=== PATIENT | female | born 1960 | race Caucasian/White ===

== ENCOUNTER 2019-06-06 12:56 | Observation (INO) | payer SELFPAY ==
[2019-06-06 15:22] LABS: Urine Blood 2+ (NEG); Urine Glucose NEGATIVE (NEG); Urine Protein NEGATIVE (NEG); Urine pH 5.5 (5.0-7.0)
[2019-06-06] MEDS ORDERED: KETOROLAC 30 MG/ML INJ ONE (15:38)
[2019-06-06 16:03] LABS: Absolute Lymphocytes (CBC) 2.3 K/uL (0.7-4.9); Basophils % 0.4 % (0-1.3); Lymphocytes % 20.8 % (15.3-44.8); MPV 8.4 fL (7.6-11.3); RBC Red Blood Cell Count 4.48 M/uL (3.86-4.86)
[2019-06-06 16:22] LABS: ALT/SGPT 16 U/L (12-78); AST/SGOT 12 U/L (15-37); Albumin 3.3 g/dL (3.4-5.0); Alkaline Phosphatase 101 U/L (45-117); BUN Blood Urea Nitrogen 15 mg/dL (7-18); Bicarbonate 27 mmol/L (21-32); Bilirubin Direct < 0.1 mg/dL (0-0.2); Bilirubin Total 0.2 mg/dL (0.2-1.0); Glucose Level 91 mg/dL (74-106); Lipase 91 U/L (73-393); Potassium 3.9 mmol/L (3.5-5.1); Protein, Total 7.4 g/dL (6.4-8.2); Sodium Level 142 mmol/L (136-145)
--- NOTE | 2019-06-06 16:35 | RAD REPORT ---
EXAM DESCRIPTION: CT - Stone Protocol - 06/06/2019 3:50 pm CLINICAL HISTORY: Abdominal pain. Dysuria COMPARISON: None. TECHNIQUE: Computed axial tomography of the abdomen pelvis was obtained without oral or IV contrast. Lack of IV and oral contrast limits evaluation of solid organs, bowel, and vessels. Coronal reformat panfilo images were obtained and reviewed. All CT scans are performed using dose optimization technique as appropriate and may include automated exposure control or mA/KV adjustment according to patient size. FINDINGS: A 16 millimeter right lower lobe opacity A renal calculus is not seen. Moderate left hydronephrosis. 8 millimeter calculus distal left ureter Hounsfield unit 1133. A bladder calculus is not present. 39 millimeter lobulated mass extends off of the lower pole of the right kidney. Hounsfield unit 24 The liver, pancreas and adrenals appear grossly normal. Splenic granulomata. Small gastric diverticu lum There is no evidence of diverticulitis. The appendix appears normal A hysterectomy has been performed. 23 millimeter cystic structure anterior left pelvis likely benign ovarian/paraovarian cyst. IMPRESSION: 8 millimeter calculus distal left ureter resulting moderate left hydronephrosis 39 millimeter lobulated mass extending off the lower pole of the right kidney does not represent a si mple cyst. It may represent a benign complex cyst or neoplasm. Ultrasound recommended 23 millimeter cystic structure anterior left pelvis likely benign ovarian/paraovarian cyst. Follow-up ultrasound in 6 months recommended to assess stability 16 millimeter right lower lobe opacity may represent an area of inflammation, atelectasis, infection or neoplasm. Follow-up CT scan in 3 months recommended for re-evaluation
--- NOTE | 2019-06-06 16:45 | ER ---
Nurse's Notes [facility] Name: Selena Fox Age: 59 yrs Sex: Female : 1960 Arrival Date: 06/06/2019 Time: 12:59 Bed 8 Private MD: Diagnosis: Hydronephrosis with renal and ureteral calculous obstruction Presentation: 06/06 13:06 Presenting complaint: Difficulty urinating and pain in groin x [address] demetrius Chapin for 8mm kidney stone. Transition of care: patient was not received from another setting of care. Onset of symptoms was May 31, 2019. Risk Assessment: Do you want to hurt yourself or someone else? Patient reports no desire to harm self or others. Initial Sepsis Screen: Does the patient meet any 2 criteria? No. Patient's initial sepsis screen is negative. Does the patient have a suspected source of infection? No. Patient's initial sepsis screen is negative. Care prior to arrival: None. 13:06 Method Of Arrival: Ambulatory 13:06 Acuity: TRISTA 3 hb Triage Assessment: 14:32 General: Appears in no apparent distress. obese, well groomed, Behavior is calm, tw2 cooperative, appropriate for age. Historical: - Allergies: 13:08 No Known Allergies; hb - PSHx: 13:08 Hysterectomy; Tubal ligation; hb - Immunization history:: Adult Immunizations up to date. - Social history:: Smoking status: Patient uses tobacco products, smokes one pack cigarettes per day. - Ebola Screening: : No symptoms or risks identified at this time. Screenin:22 Abuse screen: Denies threats or abuse. Nutritional screening: No deficits noted. tw2 Tuberculosis screening: No symptoms or risk factors identified. Fall Risk None identified. Assessment: 14:30 Pain: Complains of pain in left low back and right low back Pain radiates to pelvis. tw2 Neuro: Level of Consciousness is awake, alert, obeys commands, Oriented to person, place, time, situation. Cardiovascular: Heart tones S1 S2 Patient's skin is warm and dry. Respiratory: Airway is patent Respiratory effort is even, unlabored, Respiratory pattern is regular, symmetrical, Breath sounds are clear bilaterally. GI: Abdomen is round non-distended, obese, Bowel sounds present X 4 quads. Abd is soft and non tender X 4 quads. Reports nausea, vomiting. : Reports urgency, urinary frequency. EENT: No signs and/or symptoms were reported regarding the EENT system. Derm: No signs and/or symptoms reported regarding the dermatologic system. Musculoskeletal: Range of motion: intact in all extremities. 15:51 Reassessment: pt is in CT at this time, unavailable for vs. tw2 15:56 Reassessment: Patient appears in no apparent distress at this time. No changes from tw2 previously documented assessment. Patient and/or family updated on plan of care and expected duration. Pain level reassessed. Patient is alert, oriented x 3, equal unlabored respirations, skin warm/dry/pink. pt back from CT at this time, requesting to go smoke, pt educated as to the smoke free campus. 17:00 Reassessment: Patient appears in no apparent distress at this time. No changes from tw2 previously documented assessment. Patient and/or family updated on plan of care and expected duration. Pain level reassessed. Patient is alert, oriented x 3, equal unlabored respirations, skin warm/dry/pink. 18:31 Reassessment: Patient appears in no apparent distress at this time. No changes from tw2 previously documented assessment. Patient and/or family updated on plan of care and expected duration. Pain level reassessed. Patient is alert, oriented x 3, equal unlabored respirations, skin warm/dry/pink. 19:55 General: Appears in no apparent distress. Behavior is calm, cooperative, appropriate ea for age. Pain: Denies pain. Neuro: Level of Consciousness is awake, alert, obeys commands, Oriented to person, place, time, situation. Cardiovascular: Respiratory: Airway is patent Respiratory effort is even, unlabored, Respiratory pattern is regular, symmetrical. Derm: No signs and/or symptoms reported regarding the dermatologic system. Derm: Skin is pink, warm \T\ dry. Musculoskeletal: Circulation, motion, and sensation intact. 20:50 Reassessment: Patient and/or family updated on plan of care and expected duration. Pain ea level reassessed. Patient is alert, oriented x 3, equal unlabored respirations, skin warm/dry/pink. Awaiting on room assignment. 21:00 Reassessment: Report called to Brittney FOX on fourth. ea 21:20 Reassessment: Patient and/or family updated on plan of care and expected duration. Pain ea level reassessed. Patient is alert, oriented x 3, equal unlabored respirations, skin warm/dry/pink. Pt admitted to fourth floor, pt left ED via wheelchair per tech, pt tolerating well. No s/s of pain or discomfort noted at this time. Vital Signs: 13:08 BP 144 / 81; Pulse 96; Resp 16; Temp 98.8; Pulse Ox 97% on R/A; Weight 88.45 kg; Height hb 5 ft. 5 in. (165.10 cm); Pain 10/10; 14:30 BP 117 / 65; Pulse 97; Resp 17; Temp 98.0(O); Pulse Ox 95% on R/A; Pain 10/10; tw2 15:56 BP 130 / 94; Pulse 97; Resp 17; Pulse Ox 95% on R/A; tw2 17:00 BP 120 / 74; Pulse 83; Resp 17; Pulse Ox 95% on R/A; tw2 18:31 BP 128 / 87; Pulse 102; Resp 17; Pulse Ox 95% on R/A; tw2 20:00 BP 120 / 80; Pulse 90; Resp 18; Pulse Ox 98% on R/A; ea 21:00 BP 118 / 70; Pulse 89; Resp 18; Pulse Ox 100% on R/A; ea 13:08 Body Mass Index 32.45 (88.45 kg, 165.10 cm) hb ED Course: 12:59 Patient arrived in ED. mr 13:08 Triage completed. hb 13:08 Arm band placed on left wrist. hb 14:21 Gretel Meyers RN is Primary Nurse. tw2 14:22 Bed in low position. Call light in reach. Pulse ox on. NIBP on. tw2 14:39 Richard Alfredo PA is PHCP. jr8 14:39 Denis Gilbert MD is Attending Physician. jr8 15:45 Inserted saline lock: 20 gauge in right antecubital area, using aseptic technique. tw2 Blood collected. 15:50 CT Stone Protocol In Process Unspecified. EDMS 16:43 Lawrence Chapin MD is Hospitalizing Provider. jr8 16:43 Tom Peng MD is Hospitalizing Provider. jr8 18:59 Report given to DOMINIQUE Macias. tw2 21:20 Patient admitted, IV remains in place. ea 21:29 No provider procedures requiring assistance completed. ea Administered Medications: 15:45 Drug: TORadol - Ketorolac 15 mg Route: IVP; Site: right antecubital; tw2 16:00 Follow up: Response: No adverse reaction; Pain is decreased tw2 Outcome: 16:44 Decision to Hospitalize by Provider. olinda 21:20 Admitted to Med/surg accompanied by tech, room 425, with chart, Report called to Brittney xavier RN 21:20 Condition: stable 21:20 Instructed on the need for admit. 21:25 Patient left the ED. morenita Signatures: Dispatcher [employer] EDMS BobJuanita mr JuniRichard PA PA jr8 Esha Fowler, RN RN Gretel Meyers RN RN tw2 Yara Mathis RN RN ea
--- NOTE | 2019-06-06 16:45 | EDPHYS ---
Physician Documentation [facility] Name: Selena Fox Age: 59 yrs Sex: Female : 1960 Arrival Date: 06/06/2019 Time: 12:59 Bed 8 Private MD: ED Physician Denis Gilbert HPI: 06/06 16:13 This 59 yrs old Female presents to ER via Ambulatory with complaints of jr8 Abdominal Pain. 16:13 The patient presents with abdominal pain in the lower abdomen. Onset: The jr8 symptoms/episode began/occurred gradually, 2 day(s) ago. The symptoms radiate to left back, the left flank. Associated signs and symptoms: none. The symptoms are described as stabbing. Modifying factors: The symptoms are alleviated by nothing, the symptoms are aggravated by nothing. Severity of pain: At its worst the pain was moderate in the emergency department the pain is unchanged. It is unknown whether or not the patient has had similar symptoms in the past. The patient has been recently seen by a physician:. Patient thought she initially was having UTI but pain was getting worse. Went to Dr Ingram office to see if it was a stone. Plain film was completed showing concern for stone but could also be phlebolith. Was told to come to ED for further evaluation for obstructive stone . Historical: - Allergies: 13:08 No Known Allergies; hb - PSHx: 13:08 Hysterectomy; Tubal ligation; hb - Immunization history:: Adult Immunizations up to date. - Social history:: Smoking status: Patient uses tobacco products, smokes one pack cigarettes per day. - Ebola Screening: : No symptoms or risks identified at this time. ROS: 16:13 Eyes: Negative for injury, pain, redness, and discharge, ENT: Negative for injury, jr8 pain, and discharge, Neck: Negative for injury, pain, and swelling, Cardiovascular: Negative for chest pain, palpitations, and edema, Respiratory: Negative for shortness of breath, cough, wheezing, and pleuritic chest pain, MS/Extremity: Negative for injury and deformity, Skin: Negative for injury, rash, and discoloration, Neuro: Negative for headache, weakness, numbness, tingling, and seizure. 16:13 Abdomen/GI: Positive for abdominal pain, nausea and vomiting, Negative for diarrhea, constipation, abdominal cramps, abdominal distension, anorexia, dysphagia, hematemesis, black/tarry stool, rectal pain, rectal bleeding, bowel incontinence, flatulence. 16:13 Back: Positive for flank pain, on the left. Exam: 16:13 Eyes: Pupils equal round and reactive to light, extra-ocular motions intact. Lids and jr8 lashes normal. Conjunctiva and sclera are non-icteric and not injected. Cornea within normal limits. Periorbital areas with no swelling, redness, or edema. ENT: Nares patent. No nasal discharge, no septal abnormalities noted. Tympanic membranes are normal and external auditory canals are clear. Oropharynx with no redness, swelling, or masses, exudates, or evidence of obstruction, uvula midline. Mucous membranes moist. Neck: Trachea midline, no thyromegaly or masses palpated, and no cervical lymphadenopathy. Supple, full range of motion without nuchal rigidity, or vertebral point tenderness. No Meningismus. Cardiovascular: Regular rate and rhythm with a normal S1 and S2. No gallops, murmurs, or rubs. Normal PMI, no JVD. No pulse deficits. Respiratory: Lungs have equal breath sounds bilaterally, clear to auscultation and percussion. No rales, rhonchi or wheezes noted. No increased work of breathing, no retractions or nasal flaring. Back: No spinal tenderness. Mild CVA tenderness left side. Full range of motion. Skin: Warm, dry with normal turgor. Normal color with no rashes, no lesions, and no evidence of cellulitis. MS/ Extremity: Pulses equal, no cyanosis. Neurovascular intact. Full, normal range of motion. Neuro: Awake and alert, GCS 15, oriented to person, place, time, and situation. Cranial nerves II-XII grossly intact. Motor strength 5/5 in all extremities. Sensory grossly intact. Cerebellar exam normal. Normal gait. 16:13 Abdomen/GI: Inspection: obese Bowel sounds: active, all quadrants, Palpation: soft, in all quadrants, mild abdominal tenderness, in the left lower quadrant, mass, is not appreciated, rebound tenderness, is not appreciated, voluntary guarding, is not appreciated, involuntary guarding, is not appreciated, no appreciated organomegaly, Indicators: McBurney's point is not tender, Diaz's sign is negative, Rovsing's sign is negative, Liver: tenderness, is not appreciated. Vital Signs: 13:08 BP 144 / 81; Pulse 96; Resp 16; Temp 98.8; Pulse Ox 97% on R/A; Weight 88.45 kg; Height hb 5 ft. 5 in. (165.10 cm); Pain 10/10; 14:30 BP 117 / 65; Pulse 97; Resp 17; Temp 98.0(O); Pulse Ox 95% on R/A; Pain 10/10; tw2 15:56 BP 130 / 94; Pulse 97; Resp 17; Pulse Ox 95% on R/A; tw2 17:00 BP 120 / 74; Pulse 83; Resp 17; Pulse Ox 95% on R/A; tw2 18:31 BP 128 / 87; Pulse 102; Resp 17; Pulse Ox 95% on R/A; tw2 20:00 BP 120 / 80; Pulse 90; Resp 18; Pulse Ox 98% on R/A; ea 21:00 BP 118 / 70; Pulse 89; Resp 18; Pulse Ox 100% on R/A; ea 13:08 Body Mass Index 32.45 (88.45 kg, 165.10 cm) hb MDM: 15:10 Patient medically screened. jr8 16:43 Data reviewed: vital signs, nurses notes, lab test result(s), radiologic studies, CT jr8 scan. Data interpreted: Pulse oximetry: on room air is 95 %. Interpretation: normal. Counseling: I had a detailed discussion with the patient and/or guardian regarding: the historical points, exam findings, and any diagnostic results supporting the discharge/admit diagnosis, lab results, radiology results, the need for further work-up and treatment in the hospital. 16:52 Physician consultation: Lawrence Chaipn MD was called at 16:52, was contacted at 16:52, jr8 regarding admission, to the medical/surgical unit. consult, patient's condition, and will see patient. 06/06 14:51 Order name: Urine Dipstick--Ancillary (enter results); Complete Time: 15:32 bd 06/06 15:32 Order name: Basic Metabolic Panel; Complete Time: 16:27 jr8 06/06 15:32 Order name: CBC with Diff; Complete Time: 16:13 jr8 06/06 15:32 Order name: Creatinine for Radiology; Complete Time: 16:27 jr8 06/06 15:32 Order name: Hepatic Function; Complete Time: 16:27 jr8 06/06 15:32 Order name: Lipase; Complete Time: 16:27 jr8 06/06 15:32 Order name: CT Stone Protocol; Complete Time: 16:37 jr8 06/06 20:45 Order name: CBC with Automated Diff EDMS 06/06 20:45 Order name: CBC with Automated Diff EDMS 06/06 20:45 Order name: Comprehensive Metabolic Panel EDMS 06/06 20:45 Order name: Comprehensive Metabolic Panel EDMS 06/06 20:46 Order name: Renal Ultrasound-Complete EDMS 06/06 20:46 Order name: Renal Ultrasound-Complete EDMS 06/06 15:32 Order name: IV Saline Lock; Complete Time: 15:50 jr8 06/06 15:32 Order name: Labs collected and sent; Complete Time: 15:50 jr8 06/06 20:45 Order name: CONS Physician Consult EDMS 06/06 20:45 Order name: NPO EDMS Administered Medications: 15:45 Drug: TORadol - Ketorolac 15 mg Route: IVP; Site: right antecubital; tw2 16:00 Follow up: Response: No adverse reaction; Pain is decreased tw2 Disposition: 06/07 07:56 Co-signature as Attending Physician, Denis Gilbert MD I agree with the assessment and wa plan of care. Disposition: 06/06/19 16:44 Hospitalization ordered by Tom Peng for Observation. Preliminary diagnosis is Hydronephrosis with renal and ureteral calculous obstruction. - Bed requested for Telemetry/MedSurg (observation). - Status is Observation. morenita - Condition is Stable. - Problem is new. - Symptoms have improved. UTI on Admission? No Signatures: Dispatcher [employer] EDMI Renetta Zavala RN RN Richard Alfredo PA PA jr8 Esha Fowler RN RN hb Wise, Tara, RN RN tw2 Yara Mathis RN RN ea Appiah, William, MD MD wa Corrections: (The following items were deleted from the chart) 06/06 20:35 16:44 Hospitalization Ordered by Tom Peng MD for Observation. Preliminary diagnosis mw is Hydronephrosis with renal and ureteral calculous obstruction. Bed requested for Telemetry/MedSurg (observation). Status is Observation. Condition is Stable. Problem is new. Symptoms have improved. UTI on Admission? No. jr8 21:25 20:35 06/06/2019 16:44 Hospitalization Ordered by Tom Peng MD for Observation. ea Preliminary diagnosis is Hydronephrosis with renal and ureteral calculous obstruction. Bed requested for Telemetry/MedSurg (observation). Status is Observation. Condition is Stable. Problem is new. Symptoms have improved. UTI on Admission? No. mw
--- NOTE | 2019-06-06 17:25 | P.HP ---
Certification for Inpatient Patient admitted to: Observation With expected LOS: <2 Midnights Practitioner: I am a practitioner with admitting privileges, knowledge of patient current condition, hospital course, and medical plan of care. Services: Services provided to patient in accordance with Admission requirements found in Title 42 Section 412.3 of the Code of Federal Regulations Patient History Date of Service: 06/06/19 History of Present Illness: This is a 59-year-old female with a past medical history presented with lower abdominal and left flank pain. Per patient, she started with lower abdominal pain and left flank pain that began 2 days ago. It seems like the pain kind of radiates down the left back. She describes it as a stabbing type of pain. No alleviating or exacerbating factors. No associated factors. She did see her primary care physician, but initially she was having UTI but the pain was progressively worsening. She went to her complaints of and a plain film was done which was concerning for an 8 mm stone versus the phlebolith. She was sent to the emergency room for Dr. marsh office for further evaluation. In the ER, patient was hemodynamically stable with blood pressure 144/81, heart rate of 96, respirations of 16, afebrile at 98.8 and satting 97% on room air. Her labs were fairly unremarkable. All her abdominal CT was with a 8 millimeter calculus distal left ureter resulting moderate left hydronephrosis; a 39 millimeter lobulated mass extending off the lower pole of the right kidney does not represent a simple cyst. It may represent a benign complex cyst or neoplasm. Ultrasound recommended. A 23 millimeter cystic structure anterior left pelvis likely benign ovarian/paraovarian cyst. Follow-up ultrasound in 6 months recommended to assess stability. A 16 millimeter right lower lobe opacity may represent an area of inflammation, atelectasis, infection or neoplasm. Follow-up CT scan in 3 months recommended for re-evaluation At the time of my exam, she was alert oriented x3, in no acute distress and hemodynamically stable. Home medications list reviewed: Yes Review of Systems 10-point ROS is otherwise unremarkable Physical Examination - Physical Exam General: Alert, In no apparent distress, Oriented x3 HEENT: Atraumatic, PERRLA, Mucous membr. moist/pink, EOMI, Sclerae nonicteric Neck: Supple, 2+ carotid pulse no bruit, No LAD, Without JVD or thyroid abnormality Respiratory: Clear to auscultation bilaterally, Normal air movement Cardiovascular: Regular rate/rhythm, Normal S1 S2 Gastrointestinal: Normal bowel sounds, No tenderness Musculoskeletal: No tenderness Integumentary: No rashes Neurological: Normal gait, Normal speech, Normal strength at 5/5 x4 extr, Normal tone, Normal affect Lymphatics: No axilla or inguinal lymphadenopathy - Studies Laboratory Data (last 24 hrs) 06/06/19 15:45: Creatinine 0.84 06/06/19 15:45: WBC 11.0 H, Hgb 13.8, Hct 42.0, Plt Count 342 06/06/19 15:45: Sodium 142, Potassium 3.9, BUN 15, Creatinine 0.85, Glucose 91, Total Bilirubin 0.2, AST 12 L, ALT 16, Alkaline Phosphatase 101, Lipase 91 Assessment and Plan - Problems (Diagnosis) (1) Hydronephrosis Current Visit: Yes Status: Acute Plan: Secondary to ureteral stone - Urology consulted, recommendations appreciated. Patient to undergo procedure with Dr. Chapin tomorrow. - NPO after midnight - continue IV fluids - pain control Qualifiers: Hydronephrosis type: with ureteral calculous obstruction Qualified Code(s) : N13.2 - Hydronephrosis with renal and ureteral calculous obstruction (2) Ureteral calculus, left Current Visit: Yes Status: Acute (3) Right kidney mass Current Visit: Yes Status: Acute Plan: Abdominal CT within 39 mm lobulated mass off of lower pole of right kidney, complex cyst versus neoplasm. - renal ultrasound pending for tomorrow for further evaluation - Patient states she does not know if she wants this worked up further. (4) Ovarian cyst Current Visit: Yes Status: Acute Plan: CT scan of the abdomen with 23 mm cystic structure, likely benign ovarian/ paraovarian cyst. Followup ultrasound recommended in 6 months Qualifiers: Laterality: unspecified laterality Qualified Code(s): N83.209 - Unspecified ovarian cyst, unspecified side (5) Opacity of lung on imaging study Current Visit: Yes Status: Acute Plan: The 16 mm right lower lobe opacity suspected inflammation versus atelectasis versus neoplasm. Follow up CT in 3 months recommended - Plan DVT prophylaxis: Hold for procedure tomorrow GI prophylaxis: None Diet: NPO after midnight Disposition: Pending symptomatic improvement and procedure per Dr. bleak tomorrow. Anticipate discharge after cysto and stent placement tomorrow if clinically doing well. - Advance Directives Does patient have a Living Will: No Does patient have a Durable POA for Healthcare: No
[2019-06-06] MEDS ORDERED: ONDANSETRON 4 MG/2 ML VIAL IV PRN (20:41)
[2019-06-06] MEDS: NA CHLORIDE 0.9% 1,000 ML IV SCH (21:53)
[2019-06-06] MEDS: MORPHINE 2 MG/ML SYR IV PRN (21:54)
[2019-06-06] MEDS ORDERED: LORazepam 2 MG/ML VIAL IV PRN (23:27)
[2019-06-07 04:35] LABS: Absolute Lymphocytes (CBC) 2.6 K/uL (0.7-4.9); Basophils % 0.4 % (0-1.3); Hematocrit 41.7 % (36.0-45.0); MPV 8.1 fL (7.6-11.3); RBC Red Blood Cell Count 4.39 M/uL (3.86-4.86)
[2019-06-07 04:54] LABS: ALT/SGPT 14 U/L (12-78); AST/SGOT 10 U/L (15-37); Albumin 3.1 g/dL (3.4-5.0); Alkaline Phosphatase 93 U/L (45-117); BUN Blood Urea Nitrogen 18 mg/dL (7-18); Bicarbonate 26 mmol/L (21-32); Bilirubin Total 0.2 mg/dL (0.2-1.0); Glucose Level 94 mg/dL (74-106); Potassium 3.9 mmol/L (3.5-5.1); Protein, Total 6.4 g/dL (6.4-8.2); Sodium Level 144 mmol/L (136-145)
[2019-06-07] MEDS ORDERED: POTASSIUM CL SA 10 MEQ TAB PO ONE (05:55)
[2019-06-07 06:35] LABS: Magnesium 2.2 mg/dL (1.8-2.4); Phosphorus 3.8 mg/dL (2.5-4.9)
[2019-06-07] MEDS: NA CHLORIDE 0.9% 1,000 ML IV SCH (10:31)
[2019-06-07] MEDS ORDERED: Ringers Lactate 1,000 ML IV ONE (11:42)
[2019-06-07] MEDS ORDERED: PROPOFOL 200 MG/20 ML VIAL IV ONE (11:58)
[2019-06-07] MEDS ORDERED: FENTANYL CITR 100 MCG/2 ML ONE (11:59)
[2019-06-07] MEDS ORDERED: MIDAZOLAM HCL 2 MG/2 ML INJ ONE (12:00)
[2019-06-07] MEDS ORDERED: ONDANSETRON 4 MG/2 ML VIAL ONE (12:00)
[2019-06-07] MEDS ORDERED: LIDOCAINE 2% MPF 5 ML VIAL ONE (12:00)
[2019-06-07] MEDS ORDERED: GENTAMICIN 100 MG/100 ML BAG 100 ML IV ONE (12:10)
--- NOTE | 2019-06-07 14:35 | CON ---
History Of Present Illness: A 59-year-old female with an 8 mm left lower ureteral stone causing mode rate left hydronephrosis. She was seen in the ER and got admitted last night. Her pain began 2 days prior, radiation down the left back, was a stabbing type pain, nothing would alleviate it. She was admitted overnight. The plan is to do left ESWL, possible cysto and stent, possible ureteroscopy. S he also had a 23 mm cystic structure, anterior left pelvis, possible cyst. She also has a complicated cyst extending off the lower pole of the right kidney and she has a renal ultrasound pen ding this morning. All the general information, alternatives, and risks were given. She wished to p roceed. Review of Systems: Ten-point review is otherwise unremarkable. Social History: Noncontributory. Physical Examination: General: Alert. No acute distress. Neck: Supple. Cardiovascular: S1, S2. Abdomen: Soft, nontender. Musculoskeletal: No tenderness. Skin: No rashes. Neurologic: Normal gait. Laboratory Data: Reviewed. Labs within normal limits. Creatinine 0.84. CBC: Normal white count a t 11.0, H and H 13.8 and 42, platelet count 342. Electrolytes normal. Potassium 3.9, sodium 142. Problem: An 8 mm stone, left lower ureter. Plan: Plan is as above. Go for left ESWL, possible cysto stent placement, possible uroscopy, and re view her renal ultrasound this morning to see what that cyst may represent. ovarian cyst and can follow up with [employer] for that. She also has a 16 mm right lower lobe lung opacity, atelectasis versus neoplasm. She CT scan in 3 months for that from her primary care. Plan is to pro ceed as above. JARED/JASPAL Voice ID: [id number] Report ID: [id number]
--- NOTE | 2019-06-07 14:37 | RAD REPORT ---
EXAM DESCRIPTION: US - Renal Ultrasound-Complete - 06/07/2019 7:56 am CLINICAL HISTORY: Renal mass COMPARISON: None. FINDINGS: The right kidney measures 13 cm with a normal echotexture. 3.5 centimeter complex cystic m ass extends off of the lower pole. It contains septations. Portions of the septations appear calcifie d The left kidney measures 14 cm with a normal echotexture. Moderate hydronephrosis Hydronephrosis is not seen. IMPRESSION: Moderate left hydronephrosis 3.5 centimeter complex cystic mass extends off of the lower pole of the right kidney. It is indetermi silverio. It is recommended that the patient have a CT scan with IV contrast. This can then be compared w ith the unenhanced CT scan to determine if there is abnormal enhancement to suggest neoplasm
[2019-06-07] MEDS: MORPHINE 2 MG/ML SYR IV PRN (15:31)
[2019-06-07] MEDS ORDERED: FENTANYL CITR 100 MCG/2 ML IV PRN (16:01)
[2019-06-07] MEDS ORDERED: OXYBUTYNIN CHLORIDE 5 MG TAB PO SCH (16:02)
--- NOTE | 2019-06-08 05:12 | DS ---
Date of Discharge: 06/07/2019 Consultants: Lawrence Chapin MD with Urology. Procedures: On 06/07/2019, left ESWL Discharge Diagnoses: 1.Hydronephrosis secondary to ureteral stone. 2.Left ureteral calculus. 3.Right kidney mass. CT shows possible complex cyst versus neoplasm. Renal ultrasound equivocal. 4.Ovarian cyst. Followup ultrasound recommended in 6 months. 5.Lung opacity on the right lower lobe inflammation versus atelectasis versus neoplasm. Follow up C T in 3 months. 6.Obesity, BMI of 34. Hospital Course: Patient is a 59-year-old female with no significant past medical history other than tobacco abuse, comes in with abdominal pain to the lower abdomen radiating to the left. Patient was found to have a ureteral calculi. Her white blood cell count was mildly elevated. Kidney function was normal. Imaging study of the CT of the abdomen showed multiple findings including 8 mm calculus in the distal left ureter representing moderate left hydronephrosis, 39 mm lobulated mass extending o ff the lower pole of the right kidney does not represent a simple cyst, may represent a benign comple x cyst or neoplasm. Ultrasound was recommended, also showed 23 mm cystic structure anterior left pel vis, likely benign ovarian paraovarian cyst. Follow up ultrasound in 6 months recommended to assess stability. Also showed 16 mm right lower lobe opacity may represent an area of inflammation, atelect asis, infection or neoplasm. Followup CT scan in 3 months recommended for re-evaluation. Of note, billie herrera has seen Dr. Pringle in the past, had a dictated CT chest done, which did not show any abnorm alities. Regarding the renal ultrasound, showed moderate left hydronephrosis. A 3.5 cm complex cyst ic mass extends off the lower pole of the kidney, it is indeterminate. Patient was recommended to ibrahim ve a CT scan with IV contrast to be compared to the noncontrast CT. Patient, however, is not willing to pursue further diagnosis. She understands that these lesions may be malignant including the one in the kidney and the one in the lung. She states that she prefers quality of life over quantity of life. She understands that delaying diagnosis can result in worsening symptoms, delay of care, delay of diagnosis of a possible malignancy in her kidney and her lung and may lead to spreading without p ossible malignancy leading to . She understands the risks. This discussion took place with ini tially with charge nurse, Nory, present and then subsequently when her daughter was present in the room, she understands the risks of delaying diagnosis and she states she does not wish to have any bi opsy. She has seen effects of chemotherapy radiation therapy. She is not interested in any chemothe rapy radiation therapy. She also noted that her mom was diagnosed with lung cancer and underwent tenzin atment and did not improve and eventually shot herself. Patient did not wish to go down the same jaz d. At this time, she also declines pulmonary evaluation. She declines CT scan of the chest and a IV contrast CT abdomen. She wants to be able to urinate properly. Again, now that she is after the pr ocedure including the lithotripsy done by Dr. Chapin with Urology and wishes to go home. She states t hat she will prefer not to be in the hospital, does not like physicians, nurses, and would rather be at home. Patient is alert and oriented x3. Understands risks versus benefits of pursuing further di agnosis versus delaying diagnosis. Patient did well postoperatively. She did have some complaints o f bladder spasms, which improved with Ditropan and pain medications. Patient was then cleared for di scharge by Neurology standpoint. As patient is not interested in further diagnostic workup of her lesions, she is recommended to have outpatient followup including CT scan of the chest. CT scan of the abdomen with IV contrast, as well as repeat ultrasound of her pelvis to monitor the lesions as mentioned above. Patient was then disc harged home in a stable condition. Activity: As tolerated. Medications: As per medication reconciliation list. Followup: Follow up with PCP in 2-3 days. Follow up with urologist, Dr. Chapin, in 2 weeks. Return to ER for worsening condition. Patient refused to follow up with local pulmonology. She is recommen ded to establish care with surplus property disposal agent. She also needs to have repeat imaging studies as mentioned , which can be facilitated through her primary care physician. Physical Examination: General: Awake, alert, oriented, no acute distress. CV: S1 and S2. Respiratory: Moving air well bilaterally. Abdomen: Abdomen is soft, nontender, nondistended. Positive bowel sounds. Some mild tenderness on the flank. Extremities: No clubbing, cyanosis, or edema. Neurologic: Nonfocal. SA/MODL Voice ID: [id number] Report ID: [id number]
== END 2019-06-07 19:30 | disposition home or self-care (01) ==
LOC: ER 12:56 → ERHOLD 20:55 → 4TH 21:13
PROVIDERS: ADMIT Family Medicine; ATTEND Family Medicine
PROC: 0TF7XZZ Fragmentation in Left Ureter, External Approach (ICD-10-PCS; principal; 2019-06-07 12:00)
DX: N13.2 Hydronephrosis with renal and ureteral calculous obstruction (principal); N28.9 Disorder of kidney and ureter, unspecified; N83.209 Unspecified ovarian cyst, unspecified side; N32.89 Other specified disorders of bladder; R91.8 Other nonspecific abnormal finding of lung field; F17.210 Nicotine dependence, cigarettes, uncomplicated; E66.9 Obesity, unspecified; Z68.34 Body mass index [BMI] 34.0-34.9, adult; Z80.1 Family history of malignant neoplasm of trachea, bronchus and lung
CPT/HCPCS: 36415; 50590; 74176; 76377; 76770; 80048; 80053; 80076; 81003; 83690; 83735; 84100; 85025; 94760; 96374; 99285; G0378; J1580; J2250; J2270; J2405; J2704; J3010; J7030

== ENCOUNTER 2022-02-16 20:55 | Emergency (ER) | payer OTHER, SELFPAY ==
--- OUTSIDE RECORDS SUMMARY | 2022-02-16 20:58 | XMS REPORT | Continuity of Care Document ---
:1960 Author Organization [facility] t Address [facility] [place] [address] Care Team Providers Name Role Phone Unavailable Unavailable Unavailable Problems This patient has no known problems. Allergies, Adverse Reactions, Alerts This patient has no known allergies or adverse reactions. Medications This patient has no known medications. Procedures This patient has no known procedures. Results This patient has no known results.
--- NOTE | 2022-02-16 22:46 | ER ---
Nurse's Notes [facility] Name: Selena Fox Age: 61 yrs Sex: Female : 1960 Arrival Date: 02/16/2022 Time: 21:00 Bed Waiting Private MD: Diagnosis: ED Course: 02/16 21:00 Patient arrived in ED. hola Administered Medications: No medications were administered Outcome: 22:46 Eloped from waiting room, before seeing physician Time discovered patient gone: January at 22:46 22:46 Patient left the ED. as6 Signatures: Lisa Crenshaw Ashby, RN RN as6
== END 2022-02-16 22:46 | disposition left against medical advice (07) ==
LOC: ER 20:55
DX: Z02.9 Encounter for administrative examinations, unspecified (principal)

== ENCOUNTER 2022-02-17 08:44 | Inpatient (IN) | payer SELFPAY ==
--- OUTSIDE RECORDS SUMMARY | 2022-02-17 08:47 | XMS REPORT | Continuity of Care Document ---
:1960 Author Organization [facility] t Address [address] [place] [address] Dr. Guzman [address] [place] [id number] Care Team Providers Name Role Phone Unavailable Unavailable Unavailable Problems This patient has no known problems. Allergies, Adverse Reactions, Alerts This patient has no known allergies or adverse reactions. Medications This patient has no known medications. Procedures This patient has no known procedures. Results This patient has no known results.
[2022-02-17 09:45] LABS: Absolute Lymphocytes (CBC) 2.5 K/uL (0.7-4.9); Hematocrit 44.5 % (36.0-45.0); Lymphocytes % 19.3 % (15.3-44.8); MPV 7.8 fL (7.6-11.3); RBC Red Blood Cell Count 4.79 M/uL (3.86-4.86)
--- NOTE | 2022-02-17 09:55 | RAD REPORT ---
EXAM DESCRIPTION: CT - Abdomen Pelvis W Contrast - 02/17/2022 9:37 am CLINICAL HISTORY: Abdominal pain/gastrointestinal bleed COMPARISON: 2018 TECHNIQUE: Computed axial tomography of the abdomen pelvis was obtained. 100 cc Isovue-300 was admin istered intravenously. Oral contrast was not requested which limits evaluation of bowel. All CT scans are performed using dose optimization technique as appropriate and may include automated exposure control or mA/KV adjustment according to patient size. FINDINGS: 4.7 centimeter mass extends off of the lower pole of the right kidney. It previously measu red 3.5 centimeters. It contains septations and small amount of calcification. Liver, pancreas and adrenals are unremarkable. Small left renal cysts. Splenic granulomata Cholelithiasis. Appendix is normal caliber. Diverticula stem from the colon without visualization of diverticulitis. Hysterectomy. Atherosclerotic disease. Diverticulum extends off of the posterior gastric fundus IMPRESSION: Enlargement of a 4.7 centimeter complex cystic right renal mass. This may represent a cy stic neoplasm.
[2022-02-17 10:00] LABS: ALT/SGPT 18 U/L (12-78); Albumin 3.4 g/dL (3.4-5.0); Alkaline Phosphatase 99 U/L (45-117); BUN Blood Urea Nitrogen 18 mg/dL (7-18); Bicarbonate 28 mmol/L (21-32); Bilirubin Total 0.4 mg/dL (0.2-1.0); Glucose Level 117 mg/dL (74-106); Lipase 78 U/L (73-393); Protein, Total 7.6 g/dL (6.4-8.2); Sodium Level 143 mmol/L (136-145)
[2022-02-17 10:05] LABS: AST/SGOT 13 U/L (15-37)
[2022-02-17 10:18] LABS: Protime INR 1.08
[2022-02-17] MEDS ORDERED: PANTOPRAZOLE 40 MG INJ ONE (10:47)
--- NOTE | 2022-02-17 11:23 | EDPHYS ---
Physician Documentation [facility] Name: Selena Fox Age: 61 yrs Sex: Female : 1960 Arrival Date: 02/17/2022 Time: 08:47 Bed 2 Private MD: ED Physician Shukri Murillo HPI: 02/17 09:24 This 61 yrs old Female presents to ER via Ambulatory with complaints of Rectal Bleeding.pm1 09:24 The patient presents to the emergency department with bleeding from the rectum/anus, pm1 that is moderate. Onset: The symptoms/episode began/occurred yesterday. Context: the patient has no known special context relating to the rectal area complaint(s). Modifying factors: The symptoms are alleviated by nothing, The symptoms are aggravated by nothing. Associate signs and symptoms: Pertinent positives: lower GI bleeding, Pertinent negatives: abdominal pain, constipation, diarrhea, dysuria, fever, vomiting. The patient has experienced a previous episode, many years ago, Evaluated by PCP at that time. Bright red blood at that time and told not a significant concern. Patient denies history of hemorrhoids . The patient has not recently seen a physician. Patient reports painless bowel movements onset yesterday with bright red blood and clots. Patient took a picture of her third bloody bowel movement that was bright red blood with a large amount of clots. Historical: - Allergies: 09:05 No Known Allergies; ph - PMHx: 09:05 SVT; COPD; ph - Immunization history:: Adult Immunizations unknown. - Social history:: Smoking status: Patient reports the use of cigarette tobacco products. ROS: 09:24 Constitutional: Negative for fever, chills, and weight loss, Cardiovascular: Negative pm1 for chest pain, palpitations, and edema, Respiratory: Negative for shortness of breath, cough, wheezing, and pleuritic chest pain. 09:24 Back: Negative for injury and pain, MS/Extremity: Negative for injury and deformity, Skin: Negative for injury, rash, and discoloration, Neuro: Negative for headache, weakness, numbness, tingling, and seizure. 09:24 Abdomen/GI: Positive for rectal bleeding, Negative for abdominal pain, nausea, vomiting, and diarrhea, black/tarry stool, rectal pain. 09:24 All other systems are negative. Exam: 09:24 Constitutional: This is a well developed, well nourished patient who is awake, alert, pm1 and in no acute distress. Head/Face: Normocephalic, atraumatic. 09:24 Back: No spinal tenderness. No costovertebral tenderness. Full range of motion. Skin: Warm, dry with normal turgor. Normal color with no rashes, no lesions, and no evidence of cellulitis. MS/ Extremity: Pulses equal, no cyanosis. Neurovascular intact. Full, normal range of motion. 09:24 Cardiovascular: Exam negative for acute changes, Rate: normal, Rhythm: regular, Pulses: no pulse deficits are appreciated, Heart sounds: normal. 09:24 Respiratory: Exam negative for acute changes, respiratory distress, shortness of breath, Breath sounds: are clear throughout. 09:24 Abdomen/GI: Inspection: abdomen appears normal, Palpation: abdomen is soft and non-tender, in all quadrants. 09:24 Neuro: Exam negative for acute changes, Orientation: is normal, Mentation: is normal, Motor: is normal, moves all fours. Vital Signs: 09:01 BP 136 / 78; Pulse 98; Resp 18; Temp 98.4; Pulse Ox 92% on R/A; Weight 90.72 kg; Height ph 5 ft. 5 in. (165.10 cm); 10:02 BP 142 / 73; Pulse 86; Resp 17; Pulse Ox 100% ; Pain 0/10; jh6 09:01 Body Mass Index 33.28 (90.72 kg, 165.10 cm) ph MDM: 09:17 Patient medically screened. pm1 10:27 Refusal of service: The patient/guardian displays adequate decision making capability pm1 and despite a detailed discussion of alternatives, benefits, risks, and consequences refuses: ROCIO. 10:28 Data reviewed: vital signs. Data interpreted: Pulse oximetry: on room air is 100 %. pm1 Interpretation: normal. 10:30 Counseling: I had a detailed discussion with the patient and/or guardian regarding: the pm1 historical points, exam findings, and any diagnostic results supporting the discharge/admit diagnosis, lab results, radiology results, the need for further work-up and treatment in the hospital. 02/17 09:07 Order name: CBC with Diff; Complete Time: 10:02 pm1 02/17 09:07 Order name: CMP; Complete Time: 10:11 pm1 02/17 09:07 Order name: Lipase; Complete Time: 10:11 pm1 02/17 09:09 Order name: COVID-19 SARS RT PCR (Document "Date of Onset" if Symptomatic); Complete pm1 Time: 12:33 02/17 09:24 Order name: PT-INR; Complete Time: 10:29 pm1 02/17 09:24 Order name: Type And Screen; Complete Time: 12:33 pm1 02/17 11:41 Order name: Urine Dipstick-Ancillary; Complete Time: 12:33 EDMS 02/17 12:59 Order name: ABO/RH no charge; Complete Time: 13:03 EDMS 02/17 13:13 Order name: Urinalysis EDMS 02/17 13:13 Order name: Basic Metabolic Panel EDMS 02/17 13:13 Order name: Basic Metabolic Panel EDMS 02/17 13:13 Order name: CBC with Automated Diff EDMS 02/17 13:13 Order name: CBC with Automated Diff EDMS 02/17 13:13 Order name: Protime (+INR) EDMS 02/17 09:07 Order name: CT Abd/Pelvis - IV Contrast Only; Complete Time: 10:02 pm02/17 09:07 Order name: IV Saline Lock; Complete Time: 09:44 pm02/17 09:07 Order name: Labs collected and sent; Complete Time: 09:44 pm02/17 10:07 Order name: Labs - recollect needed: recollect type and screen, reband pt, dont forget bd the pts bday.; Complete Time: 10:43 02/17 11:22 Order name: NPO; Complete Time: 11:31 pm02/17 11:22 Order name: Urine Dipstick-Ancillary (obtain specimen); Complete Time: 11:40 pm02/17 13:13 Order name: Regular EDMS 02/17 13:13 Order name: Protime (+INR) EDMS Administered Medications: 10:47 Drug: ProTONIX (pantoprazole) 40 mg Route: IVP; Site: right antecubital; 6 12:00 Drug: NS 0.9% 1000 ml Route: IV; Rate: 125 ml/hr; Site: right antecubital; [facility] Disposition: 21:33 Co-signature as Attending Physician, Shukri SMITH was immediately available on-site ms3 in the Emergency Department for consultation in the care of the patient.. Disposition Summary: 02/17/22 11:22 Hospitalization Ordered Hospitalization Status: Inpatient Admission pm1 Provider: Diego Ruano pm1 Condition: Stable pm1 Problem: new pm1 Symptoms: have improved pm1 Bed/Room Type: Standard pm1 Location: Telemetry/MedSurg (Inpatient)(02/17/22 13:27) bd Room Assignment: [facility](02/17/22 13:27) bd Diagnosis - GI Bleed/ Gastrointestinal hemorrhage, unspecified pm1 Forms: - Medication Reconciliation Form pm1 - SBAR form pm1 Signatures: Dispatcher [employer] EDMS Masha Morillo Patricia, RN RN ph Alberto Perez NP BELT REPAIRER pm1 Shukri Murillo DO DO ms3 Jeana Rojas RN RN jh6 Corrections: (The following items were deleted from the chart) 11:54 11:22 Telemetry/MedSurg (Inpatient) pm1 bd 11:54 11:22 pm1 bd 13:27 11:54 [facility] ER HOLD bd bd 13:27 11:54 ERHOLD- bd bd
--- NOTE | 2022-02-17 11:23 | ER ---
Nurse's Notes [facility] Name: Selena Fox Age: 61 yrs Sex: Female : 1960 Arrival Date: 02/17/2022 Time: 08:47 Bed 2 Private MD: Diagnosis: GI Bleed/ Gastrointestinal hemorrhage, unspecified Presentation: 02/17 09:01 Chief complaint: Patient states: Rectal bleeding x 2 days, also reports stomach ph bloating but denies pain, states that blood is bright red w/ dark clots and happens w/ every BM. No chest pain, dizziness, does report SOB but states that it's normal d/t COPD and smoking. Coronavirus screen:. Coronavirus screen: Vaccine status: Patient reports receiving the 2nd dose of the covid vaccine. Ebola Screen: No symptoms or risks identified at this time. Initial Sepsis Screen: Does the patient meet any 2 criteria? No. Patient's initial sepsis screen is negative. Does the patient have a suspected source of infection? No. Patient's initial sepsis screen is negative. Risk Assessment: Do you want to hurt yourself or someone else? Patient reports no desire to harm self or others. Onset of symptoms was February 17, 2022. 09:01 Method Of Arrival: Ambulatory ph 09:01 Acuity: TRISTA 3 ph Triage Assessment: 09:12 General: Appears in no apparent distress. comfortable, Behavior is calm, cooperative, ph appropriate for age. General: Reports fatigue for Denies fever, feeling ill. Pain: Denies pain. Neuro: Level of Consciousness is awake, alert, obeys commands, Oriented to person, place, time, situation. Cardiovascular: Capillary refill < 3 seconds in bilateral fingers Patient's skin is warm and dry. Respiratory: Airway is patent Respiratory effort is even, unlabored, Respiratory pattern is regular, symmetrical. Historical: - Allergies: 09:05 No Known Allergies; ph - PMHx: 09:05 SVT; COPD; ph - Immunization history:: Adult Immunizations unknown. - Social history:: Smoking status: Patient reports the use of cigarette tobacco products. Screenin:45 Abuse screen: Denies threats or abuse. Nutritional screening: No deficits noted. jh6 Tuberculosis screening: No symptoms or risk factors identified. Fall Risk Assessment: 09:00 Pain: Denies pain. ph 09:45 General: Appears in no apparent distress. Behavior is calm, cooperative. jh6 09:50 Pain: Denies pain. jh6 09:50 GI: Reports bloating, rectal bleeding, bloody stool. jh6 Vital Signs: 09:01 BP 136 / 78; Pulse 98; Resp 18; Temp 98.4; Pulse Ox 92% on R/A; Weight 90.72 kg; Height ph 5 ft. 5 in. (165.10 cm); 10:02 BP 142 / 73; Pulse 86; Resp 17; Pulse Ox 100% ; Pain 0/10; jh6 09:01 Body Mass Index 33.28 (90.72 kg, 165.10 cm) ph ED Course: 08:47 Patient arrived in ED. mr 08:55 Alberto Perez, KRISTEN is PHCP. pm1 08:55 Shukri Murillo DO is Attending Physician. pm1 08:55 Jolene Ghosh, DOMINIQUE is Primary Nurse. ll1 09:05 Triage completed. ph 09:12 Arm band placed on Patient placed in waiting room, Patient notified of wait time. ph 09:38 CT Abd/Pelvis - IV Contrast Only In Process Unspecified. EDMS 09:[address]. jh6 10:02 COVID-19 SARS RT PCR (Document "Date of Onset" if Symptomatic) Sent. 7 11:21 Diego Ruano MD is Hospitalizing Provider. pm1 14:04 Patient has correct armband on for positive identification. Placed in gown. Bed in low ap3 position. Call light in reach. Side rails up X 1. environmental monitoring technician on. Pulse ox on. NIBP on. 14:04 No provider procedures requiring assistance completed. Patient admitted, IV remains in ap3 place. Administered Medications: 10:47 Drug: ProTONIX (pantoprazole) 40 mg Route: IVP; Site: right antecubital; jh6 12:00 Drug: NS 0.9% 1000 ml Route: IV; Rate: 125 ml/hr; Site: right antecubital; 6 Outcome: 11:22 Decision to Hospitalize by Provider. pm1 14:04 Admitted to Med/surg ap3 14:04 Condition: good 14:04 Instructed on the need for admit. 14:29 Patient left the ED. 6 Signatures: Dispatcher [employer] EDMO Juanita Rojas mr Powers, Cate, RN RN ph Alberto Perez, ENROLLMENT SPECIALIST ENROLLMENT SPECIALIST pm1 Tiffanie Guadalupe RN RN ap3 Jolene Ghosh RN RN 1 Jeana Rojas RN RN 6 Mary Grace, Juanita 7 Corrections: (The following items were deleted from the chart) : 09:00 General: Appears in no apparent distress. comfortable, Behavior is calm, ph cooperative, appropriate for age, Denies fever, chills, ph : 09:00 Neuro: Level of Consciousness is awake, alert, obeys commands, Oriented to ph person, place, time, situation, ph
[2022-02-17] MEDS ORDERED: NA CHLORIDE 0.9% 1,000 ML ONE (11:37)
[2022-02-17 11:40] LABS: Urine Blood 1+ (Negative); Urine Glucose Negative (Negative); Urine Protein Negative (Negative); Urine Specific Gravity 1.025 (1.005-1.030); Urine pH 6.5 (5.0-7.0)
[2022-02-17] MEDS ORDERED: ONDANSETRON 4 MG/2 ML VIAL IV PRN (12:56)
[2022-02-17] MEDS ORDERED: ACETAMINOPHEN 500 MG TAB PO PRN (12:56)
[2022-02-17] MEDS ORDERED: ZOLPIDEM TARTRATE 5 MG TABLET PO PRN (12:56)
[2022-02-17] MEDS ORDERED: HYDROCODONE/APAP 5/325 MG TAB PO PRN (13:14)
[2022-02-17] MEDS ORDERED: SODIUM CHLORIDE 0.9% 10ML INJ IV PRN (13:15)
--- NOTE | 2022-02-17 13:17 | P.HP ---
Certification for Inpatient With expected LOS: >2 Midnights Patient will require the following post-hospital care: None Practitioner: I am a practitioner with admitting privileges, knowledge of patient current condition, hospital course, and medical plan of care. Services: Services provided to patient in accordance with Admission requirements found in Title 42 Section 412.3 of the Code of Federal Regulations Patient History Date of Service: 02/17/22 Reason for admission: GI bleed History of Present Illness: Patient is a 61-year-old female with a past medical history significant for SVT, COPD, hep C, OAB, nicotine dependence, obesity who presents with complaint of gastrointestinal bleeding onset 2 days ago. Patient reported that she initially started having diarrhea and suddenly started experiencing GI bleed. Patient reported passing blood clots from her rectum as well as having melena and bright red blood. Patient reported that diarrhea has since Resolved. Patient indicated that she changed about 12 underwears during bleeding episodes. Patient indicated that GI bleed has subsided mildly but she still experiences bleeding whenever she uses the bathroom. Patient denies any other signs and symptoms. Symptoms are aggravated or relieved by nothing. Patient decided to present to the hospital due to worsening symptoms. Of note, patient reported that she was diagnosed with a renal mass 3 years ago but has never followed up with any urologist or any other doctor. Allergies No Known Allergies Allergy (Unverified 06/06/19 20:19) Home medications list reviewed: Yes Home Medications: Aspirin/Caffeine [Bc Arthritis Powder Packet] 1 packet PO Q4H PRN 02/17/22 Hydrocodone/Acetaminophen [Vicodin Hp 10-325 mg Tablet] 1 tab PO Q4H PRN 02/17/22 Metoprolol Tartrate [Lopressor*] 5 mg PO BEDTIME 02/17/22 glucosamine HCL [Glucosamine HCl] 1 tab PO BID 02/17/22 - Past Medical/Surgical History Diabetic: No -: SVT -: Hep C 20 years ago -: Obesity -: OA -: Tubal ligation -: Hysterectomy - Family History Family History: Reviewed- Non-Contributory - Family History Mother -: Cancer Notes: Lung cancer - Social History Smoking Status: Current every day smoker Counseled patient to stop smoking for: less than 10 minutes Smoking therapy provided: Yes Patient receptive to therapy: Yes Alcohol use: No CD- Drugs: No Caffeine use: Yes Review of Systems General: Unremarkable Eyes: Unremarkable ENT: Unremarkable Respiratory: Unremarkable Cardiovascular: Unremarkable Gastrointestinal: Melena, Other (Blood clots, Bright red blood ) Genitourinary: Unremarkable Musculoskeletal: Unremarkable Integumentary: Unremarkable Neurological: Unremarkable Lymphatics: Unremarkable Physical Examination - Physical Exam General: Alert, In no apparent distress, Oriented x3, Cooperative HEENT: Normocephalic, PERRLA Neck: Supple, 2+ carotid pulse no bruit, JVD not distended Respiratory: Clear to auscultation bilaterally, Normal air movement Cardiovascular: No edema, Normal pulses, Regular rate/rhythm, Normal S1 S2 Capillary refill: <2 Seconds Gastrointestinal: Normal bowel sounds, Soft and benign Musculoskeletal: No clubbing, No swelling, No erythema, No tenderness Integumentary: No rashes, No breakdown, No tenderness/swelling, No erythema Neurological: Normal gait, Normal speech, Normal strength at 5/5 x4 extr, Normal tone Lymphatics: No axilla or inguinal lymphadenopathy - Studies Laboratory Data (last 24 hrs) 02/17/22 09:56: PT 12.8, INR 1.08 02/17/22 09:20: Sodium 143, Potassium 4.0, BUN 18, Creatinine 0.59, Glucose 117 H, Total Bilirubin 0.4, AST 13 L, ALT 18, Alkaline Phosphatase 99, Lipase 78 02/17/22 09:20: WBC 13.1 H, Hgb 14.6, Hct 44.5, Plt Count 355 Assessment and Plan - Plan -- Gastrointestinal bleeding. H&H stable. Numerical Control Machine Operator consulted. Patient placed on Protonix. GI MD recommends placing patient on a diet. We will await further recommendation from home office claims examiner. --Right renal mass. Noted on imaging. Urology consulted. Will await further recommendations. --History of SVT. Patient denies any recent episode. Telemetry to monitor for any significant arrhythmia. --History of hep C. Diagnosed 20 years ago. Continue supportive care. --Nicotine dependence. Patient counseled on tobacco cessation and placed on nicotine patch. --COPD. Stable. Continue supportive care. --Class I obesity. Likely secondary to excess calories intake. Patient counseled on weight reduction, diet and exercise therapy. --Leukocytosis. Likely reactive. Will reassess levels in a.m. --Hypertension. Blood pressure stable. Continue home medications. --Osteoarthritis. Continue home medications. --DVT prophylaxis with SCDs. Discharge Plan: Home Plan to discharge in: 48 Hours - Advance Directives Does patient have a Living Will: No Does patient have a Durable POA for Healthcare: No - Code Status/Comfort Care Code Status Assessed: Yes Code Status: Full Code Physician Review: Patient Assessed, Agree with Above Assessment and Plan
[2022-02-17 14:42] VITALS: BMI 36.6
[2022-02-17] MEDS ORDERED: CAFFEINE PO PRN (16:26)
[2022-02-17] MEDS ORDERED: ASPIRIN PO PRN (16:26)
[2022-02-17 17:55] LABS: Absolute Lymphocytes (CBC) 1.5 K/uL (0.7-4.9); Hematocrit 41.2 % (36.0-45.0); Lymphocytes % 11.3 % (15.3-44.8); MPV 7.6 fL (7.6-11.3); RBC Red Blood Cell Count 4.52 M/uL (3.86-4.86)
[2022-02-17] MEDS ORDERED: TAMSULOSIN 0.4 MG SR CAP PO SCH (21:00)
[2022-02-17] MEDS ORDERED: METOPROLOL TAR 50 MG TAB PO SCH (21:00)
[2022-02-17] MEDS: PANTOPRAZOLE 40 MG INJ IVP SCH (21:40)
[2022-02-17] MEDS: GLUCOSAMINE HCL 1500 MG PO SCH (21:40)
[2022-02-18 06:06] LABS: BUN Blood Urea Nitrogen 16 mg/dL (7-18); Bicarbonate 28 mmol/L (21-32); Glucose Level 105 mg/dL (74-106); Potassium 3.8 mmol/L (3.5-5.1); Sodium Level 142 mmol/L (136-145)
[2022-02-18 06:07] LABS: Absolute Lymphocytes (CBC) 2.5 K/uL (0.7-4.9); Lymphocytes % 21.7 % (15.3-44.8); MPV 8.1 fL (7.6-11.3); Protime INR 1.03; RBC Red Blood Cell Count 4.52 M/uL (3.86-4.86)
[2022-02-18] MEDS ORDERED: NICOTINE 21 MG/PAT TD SCH (09:00)
[2022-02-18] MEDS ORDERED: POTASSIUM CL SA 10 MEQ TAB PO ONE (09:00)
[2022-02-18] MEDS: GLUCOSAMINE HCL 1500 MG PO SCH (09:00)
[2022-02-18] MEDS: PANTOPRAZOLE 40 MG INJ IVP SCH (10:27)
[2022-02-18 11:29] VITALS: O2SAT 94
[2022-02-18 14:27] VITALS: BP 118/57; TEMP 97.8
== END 2022-02-18 16:21 | disposition home or self-care (01) | DRG 379 ==
LOC: ER 08:44 → ERHOLD 13:13 → 2ND 13:50
PROVIDERS: ADMIT Hospitalist; ATTEND Nurse Practitioner Family
DX: K92.1 Melena (principal); J44.9 Chronic obstructive pulmonary disease, unspecified; E66.9 Obesity, unspecified; Z68.36 Body mass index [BMI] 36.0-36.9, adult; N28.89 Other specified disorders of kidney and ureter; D72.829 Elevated white blood cell count, unspecified; M19.90 Unspecified osteoarthritis, unspecified site; Z86.19 Personal history of other infectious and parasitic diseases; F17.210 Nicotine dependence, cigarettes, uncomplicated; Z20.822 Contact with and (suspected) exposure to COVID-19
CPT/HCPCS: 36415; 74177; 80048; 80053; 81003; 82565; 83690; 85025; 85610; 86850; 86900; 86901; 96374; 99285; C9113; J7030; Q9967; U0003

== ENCOUNTER 2022-07-07 15:16 | Emergency (ER) | payer SELFPAY ==
--- OUTSIDE RECORDS SUMMARY | 2022-07-07 15:25 | XMS REPORT | Continuity of Care Document ---
:1960 Author Organization [facility] t Address [facility] Guzman [address] [place] [id number] Care Team Providers Name Role Phone Unavailable Unavailable Unavailable Problems This patient has no known problems. Allergies, Adverse Reactions, Alerts This patient has no known allergies or adverse reactions. Medications This patient has no known medications. Procedures This patient has no known procedures. Results This patient has no known results.
--- NOTE | 2022-07-07 16:48 | RAD REPORT ---
EXAM DESCRIPTION: RAD - Shoulder Left 2 View - 07/07/2022 4:42 pm CLINICAL HISTORY: PAIN COMPARISON: Chest Pa And Lat (2 Views) dated 08/10/2018 FINDINGS/IMPRESSION: No acute fracture. No malalignment. Mild sclerosis in the lateral third of the clavicle is chronic. Left AC joint degenerative changes with subacromial spurring. Mild left glenohum eral joint degenerative changes.
--- NOTE | 2022-07-07 16:51 | RAD REPORT ---
EXAM DESCRIPTION: RAD - Hip Left 2 View - 07/07/2022 4:43 pm CLINICAL HISTORY: PAIN COMPARISON: Hip Left 2 View dated 01/21/2014 FINDINGS/IMPRESSION: No acute fracture. No malalignment. Mild left acetabular degenerative changes.
--- NOTE | 2022-07-07 16:52 | RAD REPORT ---
EXAM DESCRIPTION: RAD - Hip Right 2 View - 07/07/2022 4:42 pm CLINICAL HISTORY: PAIN COMPARISON: No comparisons FINDINGS/IMPRESSION: No acute fracture. No malalignment. Mild right acetabular degenerative changes.
--- NOTE | 2022-07-07 17:20 | RAD REPORT ---
EXAM DESCRIPTION: CT - Head Brain Wo Cont - 07/07/2022 5:10 pm CLINICAL HISTORY: Fell thursday and hit L shoulder now R hip hurts. COMPARISON: No comparisons TECHNIQUE: All CT scans are performed using dose optimization technique as appropriate and may inclu de automated exposure control or mA/KV adjustment according to patient size. FINDINGS: No intracranial hemorrhage, hydrocephalus or extra-axial fluid collection.No areas of brai n edema or evidence of midline shift. The paranasal sinuses and mastoids are clear. The calvarium is intact. IMPRESSION: No acute intracranial abnormality.
[2022-07-07 17:33] LABS: Urine Blood 1+ (Negative); Urine Glucose Negative (Negative); Urine Protein Negative (Negative); Urine Specific Gravity 1.025 (1.005-1.030)
--- NOTE | 2022-07-07 17:49 | EDPHYS ---
Physician Documentation [facility] Name: Selena Fox Age: 62 yrs Sex: Female : 1960 Arrival Date: 07/07/2022 Time: 15:50 Bed 3 Private MD: ED Physician Gatito Delgadillo HPI: 07/07 16:45 This 62 yrs old Female presents to ER via Ambulatory with complaints of left jl9 shoulder pain, and right hip pain s/p fall at work 2 days ago. Patient reports slipping on some water. Denies LOC. . 16:45 Details of fall: The patient fell and struck a concrete surface. Onset: The jl9 symptoms/episode began/occurred 2 day(s) ago. Associated injuries: The patient sustained L shoulder. . Severity of symptoms: in the emergency department the symptoms a " 3" out of "10". Historical: - Allergies: 18:04 No Known Allergies; tp1 - PMHx: 18:04 COPD; SVT; tp1 - PSHx: 18:04 None; tp1 - Immunization history: Last tetanus immunization: unknown. - Social history:: Smoking status: Patient reports the use of cigarette tobacco products, unknown amount. ROS: 16:47 Constitutional: Negative for fever, chills, and weight loss, Eyes: Negative for injury, jl9 pain, redness, and discharge, ENT: Negative for injury, pain, and discharge, Neck: Negative for injury, pain, and swelling, Cardiovascular: Negative for chest pain, palpitations, and edema, Respiratory: Negative for shortness of breath, cough, wheezing, and pleuritic chest pain, Abdomen/GI: Negative for abdominal pain, nausea, vomiting, diarrhea, and constipation, Back: Negative for injury and pain. 16:47 Skin: Negative for injury, rash, and discoloration, Neuro: Negative for headache, weakness, numbness, tingling, and seizure, Psych: Negative for depression, anxiety, suicide ideation, homicidal ideation, and hallucinations, Allergy/Immunology: Negative for hives, rash, and allergies, Endocrine: Negative for neck swelling, polydipsia, polyuria, polyphagia, and marked weight changes, Hematologic/Lymphatic: Negative for swollen nodes, abnormal bleeding, and unusual bruising. 16:47 MS/extremity: Positive for pain, L shoulder, R hip. . Exam: 16:48 Constitutional: This is a well developed, well nourished patient who is awake, alert, jl9 and in no acute distress. Head/Face: Normocephalic, atraumatic. Eyes: Pupils equal round and reactive to light, extra-ocular motions intact. Lids and lashes normal. Conjunctiva and sclera are non-icteric and not injected. Cornea within normal limits. Periorbital areas with no swelling, redness, or edema. ENT: Mucous membranes moist. Neck: Trachea midline, no thyromegaly or masses palpated, and no cervical lymphadenopathy. Supple, full range of motion without nuchal rigidity, or vertebral point tenderness. No Meningismus. Chest/axilla: Normal chest wall appearance and motion. Nontender with no deformity. No lesions are appreciated. Cardiovascular: Regular rate and rhythm with a normal S1 and S2. No gallops, murmurs, or rubs. Normal PMI, no JVD. No pulse deficits. Respiratory: Lungs have equal breath sounds bilaterally, clear to auscultation and percussion. No rales, rhonchi or wheezes noted. No increased work of breathing, no retractions or nasal flaring. Abdomen/GI: Soft, non-tender, with normal bowel sounds. No distension or tympany. No guarding or rebound. No evidence of tenderness throughout. Skin: Warm, dry with normal turgor. Normal color with no rashes, no lesions, and no evidence of cellulitis. 16:48 Neuro: Awake and alert, GCS 15, oriented to person, place, time, and situation. Cranial nerves II-XII grossly intact. Motor strength 5/5 in all extremities. Sensory grossly intact. Cerebellar exam normal. Normal gait. Psych: Awake, alert, with orientation to person, place and time. Behavior, mood, and affect are within normal limits. 16:48 Musculoskeletal/extremity: Extremities: grossly normal except: pain, L shoulder. , pain, R hip. , ROM: limited active range of motion due to pain, in the left arm. Vital Signs: 16:29 BP 134 / 69; Pulse 82; Resp 16; Pulse Ox 95% on R/A; tp1 18:00 BP 148 / 88; Pulse 81; Resp 16; Pulse Ox 96% on R/A; tp1 Archer Coma Score: 16:06 Eye Response: spontaneous(4). Verbal Response: oriented(5). Motor Response: obeys ko1 commands(6). Total: 15. Trauma Score (Adult): 16:06 Eye Response: spontaneous(1); Verbal Response: oriented(1); Motor Response: obeys ko1 commands(2); Systolic BP: > 89 mm Hg(4); Respiratory Rate: 10 to 29 per min(4); Archer Score: 15; Trauma Score: 12 MDM: 16:11 Patient medically screened. jl9 16:47 Data reviewed: vital signs, nurses notes. jl9 17:47 Counseling: I had a detailed discussion with the patient and/or guardian regarding: the jl9 historical points, exam findings, and any diagnostic results supporting the discharge/admit diagnosis, the need for outpatient follow up, to return to the emergency department if symptoms worsen or persist or if there are any questions or concerns that arise at home, Patient reports that she does not want to wait for her blood results and wants to be discharged. Patient reports wanting to go smoke. . 07/07 16:15 Order name: XRAY Shoulder LEFT 2 view; Complete Time: 17:26 9 07/07 16:15 Order name: XRAY Hip RIGHT 2 view; Complete Time: 17:26 9 07/07 17:33 Order name: Urine Dipstick-Ancillary; Complete Time: 17:47 EDMS 07/07 16:17 Order name: XRAY Hip LEFT 2 view; Complete Time: 17:26 jl9 07/07 16:29 Order name: CT Head Brain wo Cont; Complete Time: 17:26 9 07/07 16:29 Order name: Urine Dipstick-Ancillary (obtain specimen); Complete Time: 17:45 jl9 Administered Medications: No medications were administered Disposition Summary: 07/07/22 17:48 Discharge Ordered Location: Home jl9 Condition: Stable jl9 Diagnosis - Fall (on) (from) other stairs and steps jl9 Followup: jl9 - With: Private Physician - When: 1 - 2 days - Reason: Recheck today's complaints, Continuance of care, Re-evaluation by your physician Discharge Instructions: - Discharge Summary Sheet jl9 - Fall Prevention in the Home, Adult, [id number] jl9 Forms: - Medication Reconciliation Form jl9 - Thank You Letter jl9 - Antibiotic Education jl9 - Prescription Opioid Use jl9 Signatures: Dispatcher [employer] Marisela Davila, RN RN tp1 Blue Sosa jl9 Meagan Diaz, RN RN ko1 Corrections: (The following items were deleted from the chart) 17:28 16:29 IV Saline Lock ordered. jl9 tp1
--- NOTE | 2022-07-07 17:49 | ER ---
Nurse's Notes [facility] Name: Selena Fox Age: 62 yrs Sex: Female : 1960 Arrival Date: 07/07/2022 Time: 15:50 Bed 3 Private MD: Diagnosis: Fall (on) (from) other stairs and steps Presentation: 07/07 16:06 Chief complaint: Patient states: At work on Thursday, fell and hit left and left ko1 shoulder, now right hip hurts. Recently diagnosed as Prediabetic. Care prior to arrival: None. Mechanism of Injury: Fall. Trauma event details: Injury occurred in the [facility]. 16:06 Acuity: TRISTA 3 ko1 16:06 Method Of Arrival: Ambulatory ko1 16:30 Ebola Screen: Patient negative for fever greater than or equal to 101.5 degrees tp1 Fahrenheit, and additional compatible Ebola Virus Disease symptoms Patient denies exposure to infectious person. Patient denies travel to an Ebola-affected area in the 21 days before illness onset. Initial Sepsis Screen: Does the patient meet any 2 criteria? No. Patient's initial sepsis screen is negative. Does the patient have a suspected source of infection? No. Patient's initial sepsis screen is negative. Risk Assessment: Do you want to hurt yourself or someone else? Patient reports no desire to harm self or others. Onset of symptoms was July 05, 2022. Historical: - Allergies: 18:04 No Known Allergies; tp1 - PMHx: 18:04 COPD; SVT; tp1 - PSHx: 18:04 None; tp1 - Immunization history: Last tetanus immunization: unknown. - Social history:: Smoking status: Patient reports the use of cigarette tobacco products, unknown amount. Screenin:06 Abuse screen: Denies threats or abuse. Denies injuries from another. Tuberculosis ko1 screening: No symptoms or risk factors identified. 16:27 Nutritional screening: No deficits noted. Fall Risk Fall in past 12 months (25 points). tp1 No secondary diagnosis (0 pts). No IV (0 pts). Ambulatory Aid- None/Bed Rest/Nurse Assist (0 pts). Gait- Normal/Bed Rest/Wheelchair (0 pts) Mental Status- Oriented to own ability (0 pts). Total Swartz Fall Scale indicates Low Risk Score (25-44 pts). Placed close to Nursing Station Frequent Obs/Assesments occuring As available Patient and Family Educated on Fall Prevention Program and strategies. Primary Survey: 16:06 NO uncontrolled hemorrhage observed. A: The client is awake and alert. The airway is ko1 patent. Breathing/Chest: Spontaneous respiratory effort, equal unlabored respirations, breath sounds clear bilaterally, regular pattern, symmetrical chest rise and fall. Circulation: No external hemorrhage present. Regular and strong central pulse, skin warm/dry/normal color. Disability Pupils are equal, round, reactive to light and accommodation. Client is alert. Exposure/Environment: There is no evidence of uncontrolled external bleeding. No obvious injuries are noted at this time. Assessment: 16:06 General: Appears distressed, uncomfortable, Behavior is cooperative, appropriate for ko1 age. Pain: Complains of pain in left gluteus merna and right gluteus merna. 16:24 General: Appears in no apparent distress. comfortable, Behavior is calm, cooperative. tp1 Pain: Complains of pain in left hip and left shoulder Pain radiates to right hip Pain currently is 8 out of 10 on a pain scale. Quality of pain is described as sharp, Pain began 2-3 days ago. Aggravated by repositioning. Neuro: Level of Consciousness is awake, alert, Oriented to person, place, time, situation. Cardiovascular: Capillary refill < 3 seconds in bilateral fingers Patient's skin is warm and dry. Respiratory: Airway is patent Respiratory effort is even, unlabored. GI: No signs and/or symptoms were reported involving the gastrointestinal system. : No signs and/or symptoms were reported regarding the genitourinary system. EENT: Eyes free of redness and discharge. denies blurred vision. . Derm: No signs and/or symptoms reported regarding the dermatologic system. Musculoskeletal: Circulation, motion, and sensation intact. 17:27 Reassessment: Patient appears in no apparent distress at this time. No changes from tp1 previously documented assessment. Patient is alert, oriented x 3, equal unlabored respirations, skin warm/dry/pink. PT refused blood work, provider notified. Vital Signs: 16:29 BP 134 / 69; Pulse 82; Resp 16; Pulse Ox 95% on R/A; tp1 18:00 BP 148 / 88; Pulse 81; Resp 16; Pulse Ox 96% on R/A; tp1 Myles Coma Score: 16:06 Eye Response: spontaneous(4). Verbal Response: oriented(5). Motor Response: obeys ko1 commands(6). Total: 15. Trauma Score (Adult): 16:06 Eye Response: spontaneous(1); Verbal Response: oriented(1); Motor Response: obeys ko1 commands(2); Systolic BP: > 89 mm Hg(4); Respiratory Rate: 10 to 29 per min(4); Myles Score: 15; Trauma Score: 12 ED Course: 15:50 Patient arrived in ED. rg4 16:04 Blue Sosa is PHCP. jl9 16:04 Gatito Delgadillo MD is Attending Physician. jl9 16:06 Patient has correct armband on for positive identification. ko1 16:06 Patient maintains SpO2 saturation greater than 95% on room air. ko1 16:09 Triage completed. ko1 16:24 Marisela Zaragoza, DOMINIQUE is Primary Nurse. tp1 16:27 Pulse ox on. NIBP on. tp1 16:27 No provider procedures requiring assistance completed. tp1 16:30 Arm band placed on. tp1 16:44 XRAY Shoulder LEFT 2 view In Process Unspecified. EDMS 16:44 XRAY Hip RIGHT 2 view In Process Unspecified. EDMS 16:44 XRAY Hip LEFT 2 view In Process Unspecified. EDMS 17:12 CT Head Brain wo Cont In Process Unspecified. EDMS 18:00 Patient did not have IV access during this emergency room visit. tp1 Administered Medications: No medications were administered Medication: 16:29 VIS not applicable for this client. tp1 Outcome: 16:06 Condition: stable ko1 17:48 Discharge ordered by . jl9 18:05 Discharged to home via wheelchair. tp1 18:05 Discharge instructions given to patient, Instructed on follow up and referral plans. Demonstrated understanding of follow-up care. 18:06 Patient left the ED. tp1 Signatures: Dispatcher [employer] Ltotie Rubi rg4 Marisela Zaragoza, RN RN tp1 Blue Sosa jl9 Meagan Diaz RN RN ko1
[2022-07-07 20:28] VITALS: BP 134/69; O2SAT 95
== END 2022-07-07 18:06 | disposition home or self-care (01) ==
LOC: ER 15:16
DX: M25.512 Pain in left shoulder (principal); M25.551 Pain in right hip; J44.9 Chronic obstructive pulmonary disease, unspecified; W10.9XXA Fall (on) (from) unspecified stairs and steps, initial encounter; Z72.0 Tobacco use
CPT/HCPCS: 70450; 81003; 99284

== ENCOUNTER 2023-05-31 16:31 | Emergency (ER) | payer OTHER ==
--- OUTSIDE RECORDS SUMMARY | 2023-05-31 16:34 | XMS REPORT | Continuity of Care Document ---
:1960 Author Organization [facility] t Address [address] [place] [address] Care Team Providers Name Role Phone PCP, PATIENT DOES NOT HAVE A Primary Care Physician UnavailRENATO Newby E MARKETING SPECIALIST Attending Clinician Unavailable RADIOLOGY Attending Clinician Unavailable KATHLEEN VELAZQUEZ Attending Clinician Unavailable RENATO THOMAS Admitting Clinician Unavailable KATHLEEN VELAZQUEZ Admitting Clinician Unavailable Payers Payer Name Policy Type Policy Number Effective Date Expiration Date S lars CORADO [id number] [facility] [id number] 2016 2016 CHOICE 00:00:00 00:00:00 Problems This patient has no known problems. Allergies, Adverse Reactions, Alerts Allergy Allergy Status Severity Reaction(s) Onset Inactive Treating Comm ents Source Name Type Date Date Clinician NO KNOWN Drug Active Univers ALLERGIE Class ity of S [facility] Social History Social Habit Start Date Stop Date Quantity Comments Source Sex Assigned At [birth year] USHA Finch 00:00:00 [facility]:00:00 [facility] Medications This patient has no known medications. Procedures This patient has no known procedures. Encounters Start End Encounter Admission Attending Care Care Encounter Source Date/Time Date/Time Type Type Clinicians Facility Department ID 2022-11-24 2022-11-24 Outpatient KENTON KEYES RADI LA00 [id number] [facility] 09:01:00 09:01:00 RENATO Faustin [facility] 2022-11-10 2022-11-10 Outpatient R RADIOLOGY [facility] [id number] Univers 00:00:00 00:00:00 [facility] 2016-09-09 2016-09-09 Outpatient R CAROLINE, [facility] RAD [id number] Univers 00:00:00 23:59:00 KATHLEEN [facility] Results Test Description Test Time Test Comments Results Result Sour e Comments - XR CHEST 2 V 2022-11-24 10:21:00 [facility] 1960 Sex: F * Name: IHSAN VICKERS [facility] : 1960 Age/S: 62 / F [id number] Unit #: [id number] Loc: [place] [address] Phys: Undefined Provider Acct: [id number] Dis Date: Status: REG CLI PHONE #: [phone] Exam Date: 11/24/2022 1011 FAX #: Reason: DISORDER OF KIDNEY AND URETER UNSPECIFIED EXAMS: CPT: [id number] XR CHEST 2 V [id number] Fluoro Time: DAP (Gy m2): Air Kerma (mGy): EXAMINATION: - XR CHEST 2 V HISTORY: Disorder of kidney and ureter unspecified COMPARISON: No prior examinations are available for comparison. Location code: C3 FINDINGS: PA and lateral views of the chest are submitted for evaluation. The lungs are clear. The cardiac silhouette, mediastinum and pulmonary vasculature are unremarkable. Aorta is calcified and tortuous. Degenerative changes are present in the spine IMPRESSION: 1. No acute radiographic abnormality. 2. Degenerative changes in the spine at 1021 Reported and signed by: Ruthie Eason M.D. CC: PAGE 1 Signed Report Name: IHSAN VICKERS [place] : 1960 Age/S: 62 / F [address] Unit #: [id number] Loc: [place] [address] Phys: Undefined Provider Acct: [id number] Dis Date: Status: REG CLI PHONE #: [phone] Exam Date: 11/24/2022 1011 FAX #: Reason: DISORDER OF KIDNEY AND URETER UNSPECIFIED EXAMS: CPT: [id number] XR CHEST 2 V [id number] Fluoro Time: DAP (Gy m2): Air Kerma (mGy): (Continued) Technologist: LISE SOLOMON Trntitob Date/Time: 11/24/2022 (1021) [email or web address] Orig Print D/T: S: 11/24/2022 (1024) PAGE 2 Signed Report - US RETROPERITONEAL 2022-11-24 [facility] 10:13:00 [facility] : 1960 Sex: F * Name: IHSAN VICKERS [place] : 1960 Age/S: 62 / F [id number] Unit #: [id number] Loc: [place] [address] Phys: Undefined Provider Acct: [id number] Dis Date: Status: REG CLI PHONE #: [phone] Exam Date: 11/24/2022 1003 FAX #: Reason: DISORDER OF KIDNY AND URETER UNSPECIFIED EXAMS: CPT: [id number] US RETROPERITONEAL COM [id number] EXAM: - US RETROPERITONEAL COM HISTORY: DISORDER OF KIDNY AND URETER UNSPECIFIED Location code:C3 TECHNIQUE: Grayscale B-mode and color Doppler sonographic images of the kidneys were performed. Dedicated grayscale B-mode and color Doppler pelvic imaging of the urinary bladder was also performed. COMPARISON: None available time of interpretation. FINDINGS: The right kidney measures 13.1 x 5 8 x 7cm and the left measures 13.9 x 6.3 x 5.7 cm. Lobulated septated cystlike structure in the upper pole the right kidney measuring 4.2 x 3.5 x 4.3 cm is present. Anechoic exophytic cyst from the left kidney measuring 1.1 x 1.0 cm is seen. Shadowing calculus in the left kidney measuring 1.0 x 0.7 cm is present. No hydronephrosis. There is normal renal cortical thickness and echogenicity. Cholelithiasis is incidentally noted. The urinary bladder has a normal sonographic appearance. IMPRESSION: 1. Cholelithiasis is incidentally noted. 2. Lobulated septated cystlike structure incompletely characterized involving the upper pole of the right kidney measuring 4.[address] of the kidneys with and without contrast utilizing renal mass protocol is recommended. 3. Nonobstructing left-sided nephrolithiasis measuring 1 cm with small benign 1.1 cm cyst in left kidney. at 1013 Reported and signed by: Jos Mendosa MD CC: Technologist: Jovana Sanchez Trnnhb Date/Time: 11/24/2022 (1013) [email or web address] PAGE 1 Signed Report Name: IHSAN VICKERS : 1960 Age/S: 62 / F [id number] Unit #: [id number] Loc: [place] [address] Phys: Undefined Provider Acct: [id number] Dis Date: Status: REG CLI PHONE #: [phone] Exam Date: 11/24/2022 1003 FAX #: Reason: DISORDER OF KIDNY AND URETER UNSPECIFIED EXAMS: CPT: [id number] [facility] [place] [id number] (Continued) Orig Print D/T: S: 11/24/2022 (1016) Probe: PAGE 2 Signed Report
[2023-05-31 17:27] LABS: Hematocrit 48.5 % (36.0-45.0); Lymphocytes % 15.8 % (15.3-44.8); MCV 93.7 fL (80-100); MPV 8.4 fL (7.6-11.3); RBC Red Blood Cell Count 5.17 M/uL (3.86-4.86)
[2023-05-31] MEDS ORDERED: NA CHLORIDE 0.9% 1,000 ML ONE (17:33)
[2023-05-31 17:38] LABS: Albumin 3.4 g/dL (3.4-5.0); Bilirubin Total 0.3 mg/dL (0.2-1.0); Potassium 3.6 mEq/L (3.5-5.1); Protein, Total 7.4 g/dL (6.4-8.2)
[2023-05-31 17:55] LABS: Specific Gravity 1.021 (1.005-1.030); Urine Bacteria None Seen /HPF (<20); Urine Bilirubin NEGATIVE (Negative); Urine Blood 1+ (Negative); Urine Clarity Clear (Clear); Urine Color Light-Yellow (Yellow); Urine Glucose NEGATIVE (Negative); Urine Mucus Slight /HPF (None Seen); Urine Protein NEGATIVE (Negative); Urine Urobilinogen Normal (Normal)
[2023-05-31] MEDS ORDERED: KETOROLAC 30 MG/ML INJ ONE (18:11)
--- NOTE | 2023-05-31 18:34 | RAD REPORT ---
EXAM DESCRIPTION: RAD - Chest Pa And Lat (2 Views) - 05/31/2023 6:21 pm CLINICAL HISTORY: COUGH COMPARISON: Chest Pa And Lat (2 Views) dated 02/21/2020; Abdomen 1 View (KUB) dated 06/06/2019; Chest P a And Lat (2 Views) dated 08/10/2018; Chest Pa And Lat (2 Views) dated 04/26/2018 FINDINGS: Lines: None. Lungs: No evidence of edema or pneumonia. Linear scarring in left mid lung. Pleural: No significant pleural effusions or pneumothorax. Cardiac: The heart size is within normal limits. Mediastinum: Question main pulmonary artery enlargement. Bones: No acute fractures. Other: None IMPRESSION: No acute cardiopulmonary disease.
--- NOTE | 2023-05-31 18:39 | RAD REPORT ---
EXAM DESCRIPTION: CTAbdomen Pelvis W Contrast - 05/31/2023 6:14 pm CLINICAL HISTORY: ABD PAIN COMPARISON: Abdomen Pelvis W Contrast dated 02/17/2022; Stone Protocol dated 06/06/2019; Renal Ultras ound-Complete dated 06/07/2019 TECHNIQUE: CT of the abdomen and pelvis was performed with IV contrast. All CT scans are performed using dose optimization technique as appropriate and may include automated exposure control or mA/KV adjustment according to patient size. FINDINGS: Lower chest: Mild basilar scarring. Coronary artery calcifications. Liver: No acute abnormality or suspicious lesions. Biliary: Contracted gallbladder. Stomach: No significant focal abnormality. Duodenum: No significant focal abnormality. Pancreas: No significant abnormality. Spleen: No significant abnormality. Adrenal: No suspicious lesions. Kidney/ureter: No hydronephrosis. No renal calculi. Septated right lower lobe renal lesion measuring up to 4 cm is unchanged since 02/17/2022. Other too small to characterize low-density renal lesions w hich are statistically benign. Retroperitoneum: No retroperitoneal adenopathy. Vascular: No aneurysm. Atherosclerosis. Bowel: No significant focal abnormality. Diverticulosis without evidence of acute diverticulitis. No appendicitis. Peritoneum: No ascites or free air. Bladder: Grossly unremarkable. Reproductive: No adnexal masses. Hysterectomy . Bones: No acute fracture. Multilevel degenerative changes are present in the spine. Moderate disc hei ght loss at L4-5 and L5-S1. Other: n/a IMPRESSION: No acute intra-abdominal or pelvic finding. Complex septated cystic lesion along the lower pole right kidney is unchanged since 02/17/2022 but mi ldly larger compared with 06/06/2019. Suggest continued periodic 12-[address] or ultr asound.
--- NOTE | 2023-05-31 19:01 | EDPHYS ---
Physician Documentation [facility] Name: Selena Fox Age: 63 yrs Sex: Female : 1960 Arrival Date: 05/31/2023 Time: 16:31 Bed 20 Private MD: ED Physician Shukri Murillo HPI: 05/31 16:55 This 63 yrs old Female presents to ER via Ambulatory with complaints of Abdominal ms3 Problem. 16:55 63-year-old female with past medical history of COPD, SVT, cystic neoplasm presents for ms3 left lower quadrant abdominal pain. Patient rates her pain a 9/10. Patient denies alleviating or inciting factors. Patient notes she has also had a rash on her right ankle, and a rash on her bilateral eyelids. Historical: - Allergies: 16:45 No Known Allergies; cm10 - PMHx: 16:45 COPD; SVT; cystic neoplasms; cm10 - Immunization history:: Adult Immunizations unknown. - Social history:: Smoking status: Patient reports the use of cigarette tobacco products, smokes one pack cigarettes per day. ROS: 16:55 Constitutional: Negative for fever, and chills. Neck: Negative for injury, pain, and ms3 swelling, Cardiovascular: Negative for chest pain, and palpitations. Respiratory: Negative for shortness of breath, cough, wheezing, and pleuritic chest pain. 16:55 MS/Extremity: Negative for injury and deformity, Skin: Negative for injury, rash, and discoloration. 16:55 Abdomen/GI: Positive for abdominal pain. 16:55 All other systems are negative. Exam: 16:55 Constitutional: This is a well developed, well nourished patient who is awake, alert, ms3 and in no acute distress. Head/Face: Normocephalic, atraumatic. Chest/axilla: Normal chest wall appearance and motion. Nontender with no deformity. Cardiovascular: Regular rate and rhythm with a normal S1 and S2. No gallops, murmurs, or rubs. Normal PMI, no JVD. No pulse deficits. Respiratory: Lungs have equal breath sounds bilaterally, clear to auscultation and percussion. No rales, rhonchi or wheezes noted. No increased work of breathing, no retractions or nasal flaring. 16:55 Skin: Warm, dry with normal turgor. Normal color with no rashes, no lesions, and no evidence of cellulitis. MS/ Extremity: Pulses equal, no cyanosis. Neurovascular intact. Full, normal range of motion. 16:55 Abdomen/GI: Inspection: abdomen appears normal, Bowel sounds: normal, Palpation: moderate abdominal tenderness, in the left lower quadrant. Vital Signs: 16:41 BP 154 / 77; Pulse 111; Resp 18; Temp 98; Pulse Ox 91% on R/A; Weight 91.63 kg; Height cm10 5 ft. 5 in. ; Pain 9/10; 19:21 BP 138 / 81; Pulse 83; Resp 17; Pulse Ox 94% ; Pain 0/10; ll3 16:41 Body Mass Index 33.61 (91.63 kg, 165.1 cm) cm10 16:41 Pain Scale: Adult cm10 19:21 Pain Scale: Adult ll3 MDM: 16:52 Patient medically screened. ms3 16:55 Differential diagnosis: diverticulitis, gastritis, non-specific abd pain. ms3 19:01 Data reviewed: vital signs, nurses notes, and as a result, I will discharge patient. I ms3 considered the following discharge prescriptions or medication management in the emergency department Medications were administered in the Emergency Department. See MAR. Counseling: I had a detailed discussion with the patient and/or guardian regarding: the historical points, exam findings, and any diagnostic results supporting the discharge/admit diagnosis, lab results, radiology results, the need for outpatient follow up, to return to the emergency department if symptoms worsen or persist or if there are any questions or concerns that arise at home. Response to treatment: the patient's symptoms have markedly improved after treatment, and as a result, I will discharge patient. Transition of care:. Special discussion: Based on the patient's Hx, exam, and Dx evaluation, there is no indication for emergent surgery or inpatient Tx. It is understood by the patient/guardian that if the Sx's persist or worsen they need to return immediately for re-evaluation. 05/31 16:53 Order name: CBC with Diff; Complete Time: 17:48 ms3 05/31 16:53 Order name: CMP; Complete Time: 17:48 ms3 05/31 16:53 Order name: Lipase; Complete Time: 17:48 ms3 05/31 16:53 Order name: Urinalysis w/ reflexes; Complete Time: 18:13 ms3 05/31 16:53 Order name: CT Abd/Pelvis - IV Contrast Only; Complete Time: 18:40 ms3 05/31 16:53 Order name: Chest Pa And Lat (2 Views) XRAY; Complete Time: 18:40 ms3 05/31 16:53 Order name: IV Saline Lock; Complete Time: 17:06 ms3 05/31 16:53 Order name: Labs collected and sent; Complete Time: 17:06 ms3 Administered Medications: 17:26 Drug: NS 0.9% IV 1000 ml Route: IV; Rate: 1 bolus; Site: right antecubital; hb 19:23 Follow up: Response: No adverse reaction; IV Status: Completed infusion; IV Intake: ll3 1000ml 18:05 Drug: Ketorolac IVP 10 mg 10 mg {Note: RASS 0, pain 9/10.} Route: IVP; Site: right ll1 antecubital; 19:23 Follow up: Response: No adverse reaction; Pain is decreased; RASS: Alert and Calm (0) ll3 Disposition Summary: 05/31/23 19:00 Discharge Ordered Location: Home ms3 Condition: Stable ms3 Diagnosis - Lower abdominal pain, unspecified ms3 - Impetigo ms3 - Rash and other nonspecific skin eruption ms3 Followup: ms3 - With: Denis Fan MD - When: 2 - 3 days - Reason: Recheck today's complaints Discharge Instructions: - Discharge Summary Sheet ms3 - Abdominal Pain, Adult ms3 - Rash, Adult ms3 - Body Ringworm ms3 Forms: - Medication Reconciliation Form ms3 - Thank You Letter ms3 - Antibiotic Education ms3 - Prescription Opioid Use ms3 - Patient Portal Instructions ms3 Prescriptions: - mupirocin 2 % Topical ointment - apply 1 application by TOPICAL route 3 times per day; 22 gram; Refills: 0, ms3 Product Selection Permitted Signatures: Dispatcher [employer] EDMS Esha Fowler RN RN Jolene Ghosh RN RN ll1 Shukri Murillo DO DO ms3 Katty Petersen RN RN cm10 Dawson Phelps RN ll3
--- NOTE | 2023-05-31 19:01 | ER ---
Nurse's Notes [facility] Name: Selena Fox Age: 63 yrs Sex: Female : 1960 Arrival Date: 05/31/2023 Time: 16:31 Bed 20 Private MD: Diagnosis: Lower abdominal pain, unspecified;Impetigo;Rash and other nonspecific skin eruption Presentation: 05/31 16:41 Chief complaint: Patient states: "I have a list of complaints today. I am prediabetic, cm10 I changed my diet and every time I eat, I pass out. My urine is this orange color that looks like it can burn holes. I have this rash above my eyebrows." Pt reports that she has abdominal pain that is to her LLQ and radiates across to her RLQ. Pt also reports blood in her stool and that her toe nail fell off. Dr. Murillo in triage assessing pt. Coronavirus screen: Vaccine status: Patient reports receiving the 2nd dose of the covid vaccine. Client denies travel out of the [place] in the last 14 days. Ebola Screen: No symptoms or risks identified at this time. Initial Sepsis Screen: Does the patient meet any 2 criteria? HR > 90 bpm. Does the patient have a suspected source of infection? No. Patient's initial sepsis screen is negative. Risk Assessment: Do you want to hurt yourself or someone else? Patient reports no desire to harm self or others. Onset of symptoms was May 31, 2023. 16:41 Method Of Arrival: Ambulatory cm10 16:41 Acuity: TRISTA 3 cm10 Triage Assessment: 16:47 General: Appears in no apparent distress. comfortable, Behavior is calm, cooperative. cm10 Pain: Complains of pain in right lower quadrant and left lower quadrant. Neuro: No deficits noted. Level of Consciousness is awake, alert, obeys commands, Oriented to person, place, time, situation. Respiratory: No deficits noted. Airway is patent Respiratory effort is even, unlabored, Respiratory pattern is regular, symmetrical. GI: Reports lower abdominal pain. Historical: - Allergies: 16:45 No Known Allergies; cm10 - PMHx: 16:45 COPD; SVT; cystic neoplasms; cm10 - Immunization history:: Adult Immunizations unknown. - Social history:: Smoking status: Patient reports the use of cigarette tobacco products, smokes one pack cigarettes per day. Screenin:22 [facility] ED Fall Risk Assessment (Adult) Score/Fall Risk Level 0 - 2 = Low Risk ll3 Oriented to surroundings, Maintained a safe environment, Educated pt \\T\\ family on fall prevention, incl call for assistance when getting out of bed, Hourly rounding (assess needs \\T\\ fall precautionary measures) done. Abuse screen: Denies threats or abuse. Nutritional screening: No deficits noted. Tuberculosis screening: No symptoms or risk factors identified. Assessment: 17:27 Reassessment: No changes from previously documented assessment. Patient and/or family hb updated on plan of care and expected duration. Pain level reassessed. Patient is alert, oriented x 3, equal unlabored respirations, skin warm/dry/pink. 18:05 Reassessment: No changes from previously documented assessment. Patient and/or family ll1 updated on plan of care and expected duration. Pain level reassessed. Patient is alert, oriented x 3, equal unlabored respirations, skin warm/dry/pink. 18:46 Reassessment: No changes from previously documented assessment. Dr. Murillo at . ll1 19:22 Reassessment: No changes from previously documented assessment. Patient and/or family ll3 updated on plan of care and expected duration. Pain level reassessed. Patient is alert, oriented x 3, equal unlabored respirations, skin warm/dry/pink. 19:23 GI: Bowel sounds present X 4 quads. Abd is soft and non tender X 4 quads. ll3 Vital Signs: 16:41 BP 154 / 77; Pulse 111; Resp 18; Temp 98; Pulse Ox 91% on R/A; Weight 91.63 kg; Height cm10 5 ft. 5 in. ; Pain 9/10; 19:21 BP 138 / 81; Pulse 83; Resp 17; Pulse Ox 94% ; Pain 0/10; ll3 16:41 Body Mass Index 33.61 (91.63 kg, 165.1 cm) cm10 16:41 Pain Scale: Adult cm10 19:21 Pain Scale: Adult ll3 ED Course: 16:35 Patient arrived in ED. kj1 16:41 Shukri Murillo DO is Attending Physician. ms3 16:45 Triage completed. cm10 16:46 Arm band placed on Patient placed in an exam room, on a stretcher. cm10 16:48 Jolene Ghosh, DOMINIQUE is Primary Nurse. ll1 17:38 Urinalysis w/ reflexes Sent. ll1 18:16 CT Abd/Pelvis - IV Contrast Only In Process Unspecified. EDMS 18:23 Chest Pa And Lat (2 Views) XRAY In Process Unspecified. EDMS 18:58 Inserted saline lock: 20 gauge in right antecubital area, using aseptic technique. sm8 Blood collected. 18:58 Initial lab(s) drawn, by ga, sent to lab. 8 18:59 Denis Fan MD is Referral Physician. ms3 19:16 No provider procedures requiring assistance completed. IV discontinued, intact, ll3 bleeding controlled, No redness/swelling at site. Pressure dressing applied. 19:23 Provided Education on: n/a. ll3 19:23 Patient has correct armband on for positive identification. Bed in low position. Call ll3 light in reach. Side rails up X 1. Client placed on continuous cardiac and pulse oximetry monitoring. NIBP monitoring applied. Administered Medications: 17:26 Drug: NS 0.9% IV 1000 ml Route: IV; Rate: 1 bolus; Site: right antecubital; hb 19:23 Follow up: Response: No adverse reaction; IV Status: Completed infusion; IV Intake: ll3 1000ml 18:05 Drug: Ketorolac IVP 10 mg 10 mg {Note: RASS 0, pain 9/10.} Route: IVP; Site: right ll1 antecubital; 19:23 Follow up: Response: No adverse reaction; Pain is decreased; RASS: Alert and Calm (0) ll3 Medication: 19:23 VIS not applicable for this client. ll3 Intake: 19:23 IV: 1000ml; Total: 1000ml. ll3 Outcome: 19:00 Discharge ordered by . ms3 19:23 Discharged to home ambulatory. ll3 19:23 Condition: stable 19:23 Discharge instructions given to patient, Instructed on discharge instructions, follow up and referral plans. medication usage, Demonstrated understanding of instructions, follow-up care, medications, Prescriptions given X 1. 19:24 Patient left the ED. ll3 Signatures: Dispatcher [employer] EDOK Esha Fowler RN RN Bonnie Her kj1 Jolene Ghosh, DOMINIQUE RN ll1 Shukri Murillo DO DO ms3 Dawson Phelps RN RN ll3 Katty Petersen RN RN cm10 Latha Gaitan sm8 Corrections: (The following items were deleted from the chart) 16:49 16:41 Chief complaint: Patient states: "I have a list of complaints today. I am cm10 prediabetic, I changed my diet and every time I eat, I pass out. My urine is this orange color that looks like it can burn holes. I have this rash above my eyebrows." Pt reports that she has abdominal pain that is to her LLQ and radiates across to her RLQ. cm10 19:22 19:21 BP 138 / 81; Pulse 83bpm; Resp 17bpm; Pulse Ox 94%; ll3 ll3
[2023-05-31 19:46] VITALS: TEMP 98
[2023-05-31 19:48] VITALS: BP 138/81; O2SAT 94
== END 2023-05-31 19:24 | disposition home or self-care (01) ==
LOC: ER 16:31
DX: R10.32 Left lower quadrant pain (principal); L01.00 Impetigo, unspecified; R21 Rash and other nonspecific skin eruption; F17.210 Nicotine dependence, cigarettes, uncomplicated
CPT/HCPCS: 85025; 81001; 36415; 83690; 80053; 74177; 71046; Q9967; J7030; 96361; 96374; 99284

== ENCOUNTER → 2024-01-18 | Emergency (ER) | payer OTHER ==
[~2024-01-18] MED LIST: KETOROLAC 30 MG/ML INJ ONE; NA CHLORIDE 0.9% 1,000 ML ONE; ONDANSETRON 4 MG/2 ML VIAL ONE
[2024-01-18 14:13] LABS: Absolute Basophils 0.1 K/uL (0-0.5); Absolute Eosinophils 0.2 K/uL (0-0.5); Absolute Lymphocytes (CBC) 1.8 K/uL (0.7-4.9); Absolute Monocytes 0.9 K/uL (0.1-1.3); Absolute Neutrophil 10.5 K/uL (1.8-8.0); Basophils % 0.5 % (0-1.3); Eosinophils % 1.8 % (0-4.4); Hematocrit 49.2 % (36.0-45.0); Hemoglobin 16.5 g/dL (12.0-15.0); MCH 31.4 pg (27.0-35.0); MCHC 33.5 g/dL (32.0-36.0); MCV 93.8 fL (80-100); MPV 7.5 fL (7.6-11.3); Monocytes % 6.9 % (3.3-12.3); Neutrophils % 77.8 % (41.7-73.7); Platelets 368 thou/uL (152-406); RBC Red Blood Cell Count 5.24 M/uL (3.86-4.86); Red Cell Distribution Width 14.7 % (12.1-15.2)
[2024-01-18 14:36] LABS: Albumin 3.5 g/dL (3.4-5.0); Albumin/Globulin Ratio 0.8 (1.1-1.8); Anion Gap 8.7 mEq/L (5.0-15.0); Bilirubin Total 0.5 mg/dL (0.2-1.0); Globulin 4.2 g/dL (2.3-3.5); Protein, Total 7.7 g/dL (6.4-8.2)
[2024-01-18 14:38] LABS: Potassium 3.7 mEq/L (3.5-5.1)
--- NOTE | 2024-01-18 15:35 | RAD REPORT ---
EXAM DESCRIPTION: CT - Abdomen Pelvis W Contrast - 01/18/2024 2:58 pm CLINICAL HISTORY: ABD PAIN COMPARISON: Abdomen Pelvis W Contrast dated 05/31/2023; Abdomen Pelvis W Contrast dated 02/17/2022 TECHNIQUE: Thin cut axial CT imaging of the abdomen and pelvis was performed following intravenous a dministration of 100 mL Isovue 300. Multiplanar reformats were generated and reviewed. All CT scans are performed using dose optimization technique as appropriate and may include automated exposure control or mA/KV adjustment according to patient size. FINDINGS: No suspicious findings in the lung bases apart from bibasilar subsegmental atelectatic jaylin nges. The liver, spleen, adrenal glands, and pancreas show no suspicious findings. Cholesterol containing 1 .7 cm stone near the fundus. Mildly prominent common bile duct, up to 8 mm in caliber. Symmetric renal function is seen with no hydronephrosis or suspicious renal mass. Essentially stable lobulated and septated right lower pole renal cyst measuring 4.2 x 2.0 cm with subtle mineralization. 2 mm nonobstructing left lower pole calculus Small diverticulum with air-fluid level arising from the gastric cardia, projecting posteriorly, stab le. No dilated bowel loops or bowel wall thickening. Colonic diverticulosis. Appendix is unremarkable , tracking behind the cecum No free air, free fluid or inflammatory stranding. No hernia, mass or bul ky lymphadenopathy. The urinary bladder is suboptimally distended which limits evaluation, however wi thout suspicious findings. No suspicious bony findings. Stable mild superior endplate compression deformity at T12. IMPRESSION: Nonobstructing left lower renal pole 2 mm calculus. Mildly prominent caliber of the common bile duct up to 8 mm, of uncertain significance. Please correl ate with bili profile. Cholesterol containing 1.7 cm gallstone. Other stable findings, including colonic diverticulosis.
[2024-01-18 16:52] LABS: Sqamous Epithelial <5 /HPF (None Seen); Urine Bacteria None Seen /HPF (<20); Urine Bilirubin NEGATIVE (Negative); Urine Blood 1+ (Negative); Urine Clarity Clear (Clear); Urine Color Yellow (Yellow); Urine Culture Reflex Order NOT NEEDED; Urine Glucose NEGATIVE (Negative); Urine Ketones NEGATIVE (Negative); Urine Microscopic Reflex YN ORDER UMIC; Urine Mucus Slight /HPF (None Seen); Urine Nitrite NEGATIVE (Negative); Urine Protein NEGATIVE (Negative); Urine RBC <5 /HPF (None Seen); Urine Urobilinogen Normal (Normal); Urine WBC <5 /HPF (<5); Urine pH 5.5 (5.0-7.0)
[2024-01-18 17:02] LABS: Barbiturates NEGATIVE (NEGATIVE); Benzodiazepines POSITIVE (NEGATIVE); Cocaine NEGATIVE (NEGATIVE); METHAMPHETAM NEGATIVE (NEGATIVE); Methadone NEGATIVE (NEGATIVE); Opiates POSITIVE (NEGATIVE); Phencyclidine NEGATIVE (NEGATIVE); THC Cannibis NEGATIVE (NEGATIVE)
--- NOTE | 2024-01-18 17:34 | ER ---
Nurse's Notes [facility] Name: Selena Fox Age: 63 yrs Sex: Female : 1960 Arrival Date: 01/18/2024 Time: 12:43 Bed 18 Private MD: Diagnosis: Lower abdominal pain, unspecified;Elevated blood-pressure reading, without diagnosis of hypertension Presentation: 01/17 12:56 Chief complaint: Patient states: Suprapubic pain x 2 weeks, also reports dark colored ph urine, denies N/V/D or constipation. Coronavirus screen: Vaccine status: Patient reports being unvaccinated. Ebola Screen: No symptoms or risks identified at this time. Initial Sepsis Screen: Does the patient meet any 2 criteria? No. Patient's initial sepsis screen is negative. Does the patient have a suspected source of infection? No. Patient's initial sepsis screen is negative. Risk Assessment: Do you want to hurt yourself or someone else? Patient reports no desire to harm self or others. Onset of symptoms was January 18, 2024. 12:56 Method Of Arrival: Ambulatory ph 12:56 Acuity: TRISTA 3 ph Triage Assessment: 13:00 General: Appears in no apparent distress. uncomfortable, Behavior is calm, cooperative, ph appropriate for age. Pain: Complains of pain in suprapubic area. Neuro: Level of Consciousness is awake, alert, obeys commands, Oriented to person, place, time, situation. GI: Reports lower abdominal pain, Patient currently denies constipation, diarrhea, nausea, vomiting. : Reports pain in suprapubic area Denies burning with urination. Historical: - Allergies: 12:59 No Known Allergies; ph - PMHx: 12:59 COPD; cystic neoplasms; SVT; ph - Immunization history:: Adult Immunizations unknown. - Social history:: Smoking status: unknown. Screenin:29 [facility] ED Fall Risk Assessment (Adult) History of falling in the last 3 months, kc6 including since admission No falls in past 3 months (0 pts) Confusion or Disorientation No (0 pts) Intoxicated or Sedated No (0 pts) Impaired Gait No (0 pts) Mobility Assist Device Used No (0 pt) Altered Elimination No (0 pt) Score/Fall Risk Level 0 - 2 = Low Risk. Abuse screen: Denies threats or abuse. Denies injuries from another. Nutritional screening: No deficits noted. Tuberculosis screening: No symptoms or risk factors identified. Assessment: 14:30 General: Appears in no apparent distress. uncomfortable, well groomed, well developed, kc6 Behavior is calm, cooperative, appropriate for age. Pain: Complains of pain in abdomen and suprapubic area. Neuro: Level of Consciousness is awake, alert, obeys commands, Oriented to person, place, time, situation, Appropriate for age. Cardiovascular: Capillary refill < 3 seconds. Respiratory: Airway is patent Trachea midline Respiratory effort is even, unlabored, Respiratory pattern is regular, symmetrical. GI: Abdomen is round non-distended, Bowel sounds present X 4 quads. Abd is soft X 4 quads Abdomen is tender to palpation in suprapubic area Patient currently denies diarrhea, nausea, vomiting. : Urine is clear. EENT: No signs and/or symptoms were reported regarding the EENT system. Derm: No signs and/or symptoms reported regarding the dermatologic system. Skin is intact, is healthy with good turgor, Skin is pink, warm \T\ dry. Musculoskeletal: No signs and/or symptoms reported regarding the musculoskeletal system. Circulation, motion, and sensation intact. Capillary refill < 3 seconds, Range of motion: intact in all extremities. 15:35 Reassessment: Patient appears in no apparent distress at this time. No changes from kc6 previously documented assessment. Patient and/or family updated on plan of care and expected duration. Pain level reassessed. Patient is alert, oriented x 3, equal unlabored respirations, skin warm/dry/pink. Patient states symptoms have not improved. 16:35 Reassessment: Patient appears in no apparent distress at this time. No changes from kb3 previously documented assessment. Patient and/or family updated on plan of care and expected duration. Pain level reassessed. Patient is alert, oriented x 3, equal unlabored respirations, skin warm/dry/pink. 17:32 Reassessment: Patient appears in no apparent distress at this time. No changes from kc6 previously documented assessment. Patient and/or family updated on plan of care and expected duration. Pain level reassessed. Patient is alert, oriented x 3, equal unlabored respirations, skin warm/dry/pink. Vital Signs: 12:56 BP 133 / 85; Pulse 98; Resp 18; Temp 97.8; Pulse Ox 94% on R/A; Weight 87.09 kg; Height ph 5 ft. 5 in. ; 14:29 BP 138 / 78; Pulse 99; Resp 16 S; Pulse Ox 100% on R/A; kc6 15:36 BP 143 / 80; Pulse 85; Resp 18 S; Pulse Ox 95% on R/A; kc6 16:50 BP 150 / 77; Pulse 76; Resp 15 S; Pulse Ox 94% on R/A; kc6 12:56 Body Mass Index 31.95 (87.09 kg, 165.1 cm) ph ED Course: 12:46 Patient arrived in ED. rg4 12:52 Shukri Murillo DO is Attending Physician. ms3 12:59 Triage completed. ph 13:00 Arm band placed on Patient placed in waiting room, Patient notified of wait time. ph 13:42 Linsey Patel is Primary Nurse. cp4 14:22 Inserted saline lock: 22 gauge in right antecubital area, using aseptic technique. bc6 14:29 Patient has correct armband on for positive identification. Bed in low position. Call kc6 light in reach. Side rails up X 1. Report received from Elsa Patel RN. Client placed on continuous cardiac and pulse oximetry monitoring. NIBP monitoring applied. 14:39 Door closed. Noise minimized. Lights dimmed. kc6 15:00 CT Abd/Pelvis - IV Contrast Only In Process Unspecified. EDMS 17:33 Jacek Rosario DO is Referral Physician. ms3 17:33 Andrew Winter MD is Referral Physician. ms3 17:33 Juliocesar Pringle MD is Referral Physician. ms3 Administered Medications: 14:30 Drug: NS 0.9% IV 1000 ml IV at 1 bolus Per protocol; 1000 mL bolus Route: IV; Rate: 1 kc6 bolus; Site: right antecubital; 15:36 Follow up: Response: No adverse reaction; IV Status: Completed infusion; IV Intake: kc6 1000ml 14:30 Drug: TORadol - Ketorolac IVP 15 mg IVP once Route: IVP; Site: right antecubital; kc6 15:36 Follow up: Response: No adverse reaction; Pain is unchanged, physician notified kc6 14:30 Drug: Ondansetron IVP 4 mg IVP once; over 2 minutes Route: IVP; Site: right antecubital;kc6 15:36 Follow up: Response: No adverse reaction kc6 15:36 Drug: NS 0.9% IV 1000 ml IV at 1000 ml once Route: IV; Rate: 1000 ml; Site: right kc6 antecubital; 17:41 Follow up: Response: No adverse reaction; IV Status: Completed infusion; IV Intake: kc6 1000ml Intake: 15:36 IV: 1000ml; Total: 1000ml. kc6 17:41 IV: 1000ml; Total: 2000ml. kc6 Outcome: 17:34 Discharge ordered by . ms3 17:41 Patient left the ED. bc6 Signatures: Dispatcher [employer] EDMS Cate Powers RN RN selma Mariano, Lottie rg4 Shukri Murillo, DO [place] ms3 Cherry Louis RN RN kc6 Lauren Kovacs RN RN kb3 Alexandra Mondragon bc6 Linsey Patel 4
--- NOTE | 2024-01-18 17:35 | EDPHYS ---
Physician Documentation [facility] Name: Selena Fox Age: 63 yrs Sex: Female : 1960 Arrival Date: 01/18/2024 Time: 12:43 Bed 18 Private MD: ED Physician Shukri Murillo HPI: 01/17 13:11 This 63 yrs old Female presents to ER via Ambulatory with complaints of Abdominal Pain. [facility] 13:11 63-year-old female with past medical history of COPD, cystic neoplasm, SVT presents to [facility] the emergency department for suprapubic abdominal pain that began 2 weeks prior to arrival. Patient states pain is an 8/10. Patient denies nausea, vomiting, diarrhea, constipation. Patient states she has taken Tums, Pepto-Bismol, stool softener without relief of her symptoms.. Historical: - Allergies: 12:59 No Known Allergies; ph - PMHx: 12:59 COPD; cystic neoplasms; SVT; ph - Immunization history:: Adult Immunizations unknown. - Social history:: Smoking status: unknown. ROS: 13:11 Constitutional: Negative for fever, and chills. Neck: Negative for injury, pain, and ms3 swelling, Cardiovascular: Negative for chest pain, and palpitations. Respiratory: Negative for shortness of breath, cough, wheezing, and pleuritic chest pain, 13:11 MS/Extremity: Negative for injury and deformity, 13:11 Abdomen/GI: Positive for abdominal pain, Negative for nausea, vomiting, and diarrhea, Exam: 13:11 Constitutional: This is a well developed, well nourished patient who is awake, alert, ms3 and in no acute distress. Neck: Trachea midline, no cervical lymphadenopathy. Supple, full range of motion without nuchal rigidity, or vertebral point tenderness. No Meningismus. Chest/axilla: Normal chest wall appearance and motion. Nontender with no deformity. Cardiovascular: Regular rate and rhythm with a normal S1 and S2. No gallops, murmurs, or rubs. Normal PMI, no JVD. No pulse deficits. Respiratory: Lungs have equal breath sounds bilaterally, clear to auscultation and percussion. No rales, rhonchi or wheezes noted. No increased work of breathing, no retractions or nasal flaring. Abdomen/GI: Soft, non-tender, with normal bowel sounds. No distension or tympany. No guarding or rebound. No evidence of tenderness throughout. Skin: Warm, dry with normal turgor. Normal color with no rashes, no lesions, and no evidence of cellulitis. MS/ Extremity: Pulses equal, no cyanosis. Neurovascular intact. Full, normal range of motion. Vital Signs: 12:56 BP 133 / 85; Pulse 98; Resp 18; Temp 97.8; Pulse Ox 94% on R/A; Weight 87.09 kg; Height ph 5 ft. 5 in. ; 14:29 BP 138 / 78; Pulse 99; Resp 16 S; Pulse Ox 100% on R/A; kc6 15:36 BP 143 / 80; Pulse 85; Resp 18 S; Pulse Ox 95% on R/A; kc6 16:50 BP 150 / 77; Pulse 76; Resp 15 S; Pulse Ox 94% on R/A; kc6 12:56 Body Mass Index 31.95 (87.09 kg, 165.1 cm) ph MDM: 13:09 Patient medically screened. ms3 13:11 Differential diagnosis: appendicitis, diverticulitis, non-specific abd pain, ms3 pancreatitis, urinary tract infection. 17:34 Data reviewed: vital signs, nurses notes, lab test result(s), radiologic studies, and ms3 as a result, I will discharge patient. I considered the following discharge prescriptions or medication management in the emergency department Medications were administered in the Emergency Department. See MAR. Care significantly affected by the following chronic conditions: Chronic Obstructive Pulmonary Disease. Counseling: I had a detailed discussion with the patient and/or guardian regarding the historical points, exam findings, and any diagnostic results supporting the discharge/admit diagnosis, lab results, radiology results, the need for outpatient follow up, to return to the emergency department if symptoms worsen or persist or if there are any questions or concerns that arise at home. Response to treatment: the patient's symptoms have mildly improved after treatment, and as a result, I will discharge patient. Special discussion: Based on the patient's Hx, exam, and Dx evaluation, there is no indication for emergent surgery or inpatient Tx. It is understood by the patient/guardian that if the Sx's persist or worsen they need to return immediately for re-evaluation. ED course: Discussed labs and imaging with patient. Patient to follow-up with primary care physician in 2 to 3 days. Patient understands and agrees with plan. All questions were answered. Return precautions discussed include worsening symptoms, or any other concerns. On reevaluation patient is alert and oriented x 4, no apparent distress, nontoxic-appearing, speaking full sentences, ambulatory in the emergency department. 01/17 13:10 Order name: CBC with Diff; Complete Time: 14:44 ms3 01/17 13:10 Order name: CMP; Complete Time: 14:44 ms3 01/17 13:10 Order name: Lipase; Complete Time: 14:44 ms3 01/17 16:14 Order name: Urinalysis w/ reflexes; Complete Time: 17:23 ms3 01/17 16:14 Order name: UDS; Complete Time: 17:23 ms3 01/17 13:10 Order name: CT Abd/Pelvis - IV Contrast Only; Complete Time: 15:36 ms3 01/17 13:10 Order name: IV Saline Lock; Complete Time: 14:22 ms3 01/17 13:10 Order name: Labs collected and sent; Complete Time: 14:22 ms3 Administered Medications: 14:30 Drug: NS 0.9% IV 1000 ml IV at 1 bolus Per protocol; 1000 mL bolus Route: IV; Rate: 1 kc6 bolus; Site: right antecubital; 15:36 Follow up: Response: No adverse reaction; IV Status: Completed infusion; IV Intake: kc6 1000ml 14:30 Drug: TORadol - Ketorolac IVP 15 mg IVP once Route: IVP; Site: right antecubital; kc6 15:36 Follow up: Response: No adverse reaction; Pain is unchanged, physician notified kc6 14:30 Drug: Ondansetron IVP 4 mg IVP once; over 2 minutes Route: IVP; Site: right antecubital;kc6 15:36 Follow up: Response: No adverse reaction kc6 15:36 Drug: NS 0.9% IV 1000 ml IV at 1000 ml once Route: IV; Rate: 1000 ml; Site: right kc6 antecubital; 17:41 Follow up: Response: No adverse reaction; IV Status: Completed infusion; IV Intake: kc6 1000ml Disposition Summary: 01/18/24 17:34 Discharge Ordered Notes: Location: Home ms3 Condition: Stable ms3 Diagnosis - Lower abdominal pain, unspecified ms3 - Elevated blood-pressure reading, without diagnosis of hypertension ms3 Followup: ms3 - With: Jacek Rosario DO - When: 2 - 3 days - Reason: Recheck today's complaints Followup: ms3 - With: Andrew Winter MD - When: 2 - 3 days - Reason: Recheck today's complaints Followup: ms3 - With: Juliocesar Pringle MD - When: 2 - 3 days - Reason: Recheck today's complaints Discharge Instructions: - Discharge Summary Sheet ms3 - Abdominal Pain, Adult ms3 Forms: - Medication Reconciliation Form ms3 - Thank You Letter ms3 - Antibiotic Education ms3 - Prescription Opioid Use ms3 - Patient Portal Instructions ms3 - Leadership Thank You Letter ms3 Signatures: Dispatcher [employer] Cate Boles, DOMINIQUE RN Shukri Lambert DO DO ms3 Cherry Louis RN RN kc6
[2024-01-18 18:44] VITALS: BP 150/77; TEMP 97.8; O2SAT 94
== END ==
LOC: ER 12:43
DX: R10.30 Lower abdominal pain, unspecified (principal); R03.0 Elevated blood-pressure reading, without diagnosis of hypertension; J44.9 Chronic obstructive pulmonary disease, unspecified
CPT/HCPCS: 96361; 85025; 81001; 36415; 83690; 80053; 80307; 74177; 96375; 96374; 99284; Q9967; J2405; J7030 ×2

== ENCOUNTER 2024-06-09 11:00 | Emergency (ER) | payer OTHER ==
[2024-06-09] MEDS ORDERED: PANTOPRAZOLE 40 MG INJ ONE (11:46)
[2024-06-09 12:18] LABS: Absolute Eosinophils 0.2 K/uL (0-0.5); Absolute Lymphocytes (CBC) 1.8 K/uL (0.7-4.9); Absolute Monocytes 0.8 K/uL (0.1-1.3); Absolute Neutrophil 7.6 K/uL (1.8-8.0); Basophils % 0.3 % (0-1.3); Eosinophils % 1.9 % (0-4.4); Hemoglobin 14.9 g/dL (12.0-15.0); Lymphocytes % 17.4 % (15.3-44.8); MCH 31.3 pg (27.0-35.0); MCHC 32.3 g/dL (32.0-36.0); MCV 97.1 fL (80-100); MPV 8.1 fL (7.6-11.3); Monocytes % 7.3 % (3.3-12.3); Neutrophils % 73.1 % (41.7-73.7); Platelets 338 thou/uL (152-406); RBC Red Blood Cell Count 4.74 M/uL (3.86-4.86); Red Cell Distribution Width 14.3 % (12.1-15.2)
[2024-06-09 12:31] LABS: PT Prothrombin Time 11.3 SECONDS (9.4-12.5); PTT, Activated Partial Thromb 32.6 SECONDS (24.3-36.9); Protime INR 1.01
[2024-06-09 12:33] LABS: Albumin 3.4 g/dL (3.4-5.0); Albumin/Globulin Ratio 0.9 (1.1-1.8); Anion Gap 7.9 mEq/L (5.0-15.0); Bilirubin Total 0.3 mg/dL (0.2-1.0); Globulin 3.6 g/dL (2.3-3.5); Potassium 3.9 mEq/L (3.5-5.1)
--- NOTE | 2024-06-09 12:55 | RAD REPORT ---
EXAM DESCRIPTION: CTAbdomen Pelvis W Contrast - 06/09/2024 12:35 pm CLINICAL HISTORY: Abdominal pain. rectal bleeding COMPARISON: <Comparisons> TECHNIQUE: Venous phase CT imaging of the abdomen and pelvis was performed with 100 ml non-ionic IV contrast. All CT scans are performed using dose optimization technique as appropriate and may include automated exposure control or mA/KV adjustment according to patient size. FINDINGS: Mild linear atelectasis in both posterior lung bases. The liver, spleen, pancreas, adrenal glands and kidneys are within normal limits. Numerous benign-thania earing cysts are present involving both kidneys, larger on the right measuring 4.5 cm. No bowel obstruction, free air, free fluid or abscess. Advanced sigmoid diverticulosis coli is presen t without diverticulitis. The appendix is normal. No evidence of significant lymphadenopathy. Mild lumbosacral degenerative changes. IMPRESSION: No acute intra-abdominal or pelvic finding. Prominent sigmoid diverticulosis coli is present without diverticulitis.
--- NOTE | 2024-06-09 13:51 | EDPHYS ---
Physician Documentation [facility] Name: Selena Fox Age: 64 yrs Sex: Female : 1960 Arrival Date: 06/09/2024 Time: 11:00 Bed 5 Private MD: ED Physician Nathaniel Ruano HPI: 06/09 13:17 This 64 yrs old Female presents to ER via Ambulatory with complaints of Rectal Bleeding.rn 13:17 The patient presents to the emergency department with bleeding from the rectum/anus, rn that is moderate. Onset: The symptoms/episode began/occurred this morning. Modifying factors: The symptoms are alleviated by nothing, The symptoms are aggravated by nothing. The patient has experienced a previous episode. Patient reports 5 bloody bowel movements this morning, no stool in bowel movements. Patient reports feels generalized weakness but no syncope/chest pain/shortness of breath. Patient states this has happened once before, received a shot of something in the ER and it stopped her bleeding and she went home. Denies any fever or chills. No vomiting. Reports mild lower abdominal cramping. Patient reports the stool is black but when it hits the toilet water there is some red. Has had history of gastric ulcer in the past. Does not take antacids daily. No blood thinners.. Historical: - Allergies: 11:18 No Known Allergies; ap3 - PMHx: 11:18 COPD; cystic neoplasms; SVT; ap3 - Immunization history:: Client reports receiving the 2nd dose of the Covid vaccine. - Infectious Disease History:: Denies. - Social history:: Smoking status: Patient reports the use of cigarette tobacco products, smokes one pack cigarettes per day. - Family history:: not pertinent. - Hospitalizations: : No recent hospitalization is reported. ROS: 13:17 Constitutional: Negative for fever, chills, and weight loss, Cardiovascular: Negative rn for chest pain, palpitations, and edema, Respiratory: Negative for shortness of breath, cough, wheezing, and pleuritic chest pain, Abdomen/GI: Positive for lower abdominal pain and rectal bleeding Neuro: Negative for headache, numbness, tingling, and seizure, Exam: 13:18 Constitutional: This is a well developed, well nourished patient who is awake, alert, rn and in no acute distress. Eyes: Normal conjunctiva Cardiovascular: Regular rate and rhythm. No pulse deficits. Respiratory: No increased work of breathing, no retractions or nasal flaring. Abdomen/GI: Soft, nontender, no distention Vital Signs: 11:16 BP 153 / 73; Pulse 100; Resp 17; Temp 97.7; Pulse Ox 95% ; Weight 87.09 kg; Height 5 ld1 ft. 5 in. ; 11:44 BP 116 / 74; Pulse 92; Resp 18; Pulse Ox 97% on R/A; Pain 0/10; ar6 13:03 BP 121 / 76; Pulse 89; Resp 18; Pulse Ox 99% on R/A; ld1 13:56 BP 122 / 70; Pulse 84; Resp 18; Pulse Ox 99% on R/A; ar6 11:16 Body Mass Index 31.95 (87.09 kg, 165.1 cm) ld1 11:44 Pain Scale: Adult ar6 MDM: 11:25 Patient medically screened. rn 13:43 Differential diagnosis: Diverticulitis, diverticulosis, peptic ulcer disease, gastric rn or small intestinal ulcer. Data reviewed: vital signs, nurses notes, lab test result(s), radiologic studies, CT scan, and as a result, I will admit patient. Consideration of Admission/Observation Patient was admitted/placed on observation. Escalation of care including admission/observation considered. Counseling: I had a detailed discussion with the patient and/or guardian regarding the historical points, exam findings, and any diagnostic results supporting the discharge/admit diagnosis, lab results, radiology results, the need for further work-up and treatment in the hospital, the need to transfer to another facility, [facility] does not immediately have the required specialist. Response to treatment: IMproved, no further bleeding episodes. ED course: Patient most likely with upper GI bleed, given the amount of BC powder that she takes probably gastric ulceration. Patient has not had any further GI bleed in ER here. Normal H\T\H, no acute findings and CT abdomen pelvis. Recommended transfer for higher level of care and we do not have GI here. I believe patient could benefit from upper GI scope. Patient insist on going home, understands risks of leaving without further evaluation and understands risks of further bleeding and need for blood transfusion and/or .. 06/09 11:39 Order name: CBC with Diff; Complete Time: 12:45 rn 06/09 11:39 Order name: CMP; Complete Time: 12:45 rn 06/09 11:39 Order name: Lipase; Complete Time: 12:45 rn 06/09 11:39 Order name: Protime (+inr); Complete Time: 12:45 rn 06/09 11:39 Order name: Ptt, Activated; Complete Time: 12:45 rn 06/09 11:39 Order name: Lactate w/ 2H reflex if indic.; Complete Time: 12:45 rn 06/09 11:39 Order name: CT Abd/Pelvis - IV Contrast Only; Complete Time: 13:09 rn 06/09 11:39 Order name: IV Saline Lock; Complete Time: 12:11 rn 06/09 11:39 Order name: Labs collected and sent; Complete Time: 12:11 rn 06/09 11:39 Order name: Cardiac monitoring; Complete Time: 11:50 rn Administered Medications: 12:10 Drug: Pantoprazole IVP 40 mg IVP once Route: IVP; Site: left antecubital; ar6 13:59 Follow up: Response: No adverse reaction ar6 Disposition Summary: 06/09/24 13:50 Discharge Ordered Notes: Location: Home rn Problem: new rn Symptoms: have improved rn Condition: Stable rn Diagnosis - GI Bleed/ Gastrointestinal hemorrhage, unspecified rn Followup: rn - With: Private Physician - When: As needed - Reason: Recheck today's complaints, Re-evaluation by your physician Followup: rn - With: Andrew Winter MD - When: As needed - Reason: Recheck today's complaints, Re-evaluation by your physician Discharge Instructions: - Discharge Summary Sheet rn - Gastrointestinal Bleeding rn - Rectal Bleeding rn Forms: - Medication Reconciliation Form rn - Antibiotic rn support services - Prescription Opioid Use rn - Patient Portal Instructions rn - Leadership Thank You Letter rn Prescriptions: - Protonix 40 mg Oral Tablet - take 1 tablet ORAL route once daily; 30 tablet; Refills: 0, Product Selection rn Permitted Signatures: Dispatcher [employer] Nathaniel Cheema MD MD rn Prokisch, Amanda, RN RN ap3 Roberts, Amber RN RN ar6
--- NOTE | 2024-06-09 13:51 | ER ---
Nurse's Notes [facility] Name: Selena Fox Age: 64 yrs Sex: Female : 1960 Arrival Date: 06/09/2024 Time: 11:00 Bed 5 Private MD: Diagnosis: GI Bleed/ Gastrointestinal hemorrhage, unspecified Presentation: 06/09 11:16 Chief complaint: Patient states: she started having heavy rectal bleeding and is having ap3 "big huge dark clots the size of chicken nuggets". patient denies no pain, but reports she is "woozy, tired and just not feeling right". Coronavirus screen: At this time, the client does not indicate any symptoms associated with coronavirus-19. Ebola Screen: No symptoms or risks identified at this time. Initial Sepsis Screen: Does the patient meet any 2 criteria? HR > 90 bpm. Does the patient have a suspected source of infection? No. Patient's initial sepsis screen is negative. Risk Assessment: Do you want to hurt yourself or someone else? Patient reports no desire to harm self or others. Onset of symptoms was June 08, 2024. 11:16 Method Of Arrival: Ambulatory ap3 11:16 Acuity: TRISTA 3 ap3 Triage Assessment: 11:18 General: Appears in no apparent distress. Behavior is calm, cooperative, appropriate ap3 for age, Reports fatigue for. Pain: Denies pain. Neuro: Level of Consciousness is awake, alert, obeys commands, Oriented to person, place, time, situation, Appropriate for age Reports weakness in generalized. Cardiovascular: Patient's skin is warm and dry. Respiratory: Airway is patent Respiratory effort is even, unlabored, Respiratory pattern is regular, symmetrical. GI: Reports rectal bleeding. Historical: - Allergies: 11:18 No Known Allergies; ap3 - PMHx: 11:18 COPD; cystic neoplasms; SVT; ap3 - Immunization history:: Client reports receiving the 2nd dose of the Covid vaccine. - Infectious Disease History:: Denies. - Social history:: Smoking status: Patient reports the use of cigarette tobacco products, smokes one pack cigarettes per day. - Family history:: not pertinent. - Hospitalizations: : No recent hospitalization is reported. Screenin:19 Abuse screen: Denies threats or abuse. Nutritional screening: No deficits noted. ap3 Tuberculosis screening: No symptoms or risk factors identified. 11:44 [facility] ED Fall Risk Assessment (Adult) History of falling in the last 3 months, ar6 including since admission No falls in past 3 months (0 pts) Confusion or Disorientation No (0 pts) Intoxicated or Sedated No (0 pts) Impaired Gait No (0 pts) Mobility Assist Device Used No (0 pt) Altered Elimination No (0 pt) Score/Fall Risk Level 0 - 2 = Low Risk Oriented to surroundings, Maintained a safe environment, Educated pt \\T\\ family on fall prevention, incl call for assistance when getting out of bed, Assessed \\T\\ reinforced patient's understanding of fall precautions, Provided non-skid footwear, Hourly rounding (assess needs \\T\\ fall precautionary measures) done, Used ambulatory aids as needed (educated on \\T\\ assisted with), Used gait belt as appropriate. Assessment: 11:44 Reassessment:. General: Appears in no apparent distress. comfortable, Behavior is calm, ar6 cooperative. Pain: Denies pain. Neuro: Level of Consciousness is awake, alert, obeys commands, Oriented to person, place, time, situation. Cardiovascular: Capillary refill < 3 seconds. Respiratory: Airway is patent. GI: Reports rectal bleeding, bloody stool. : Denies. EENT: No deficits noted. Derm: Skin is intact, is healthy with good turgor, Skin is dry. Musculoskeletal: No deficits noted. 13:29 Reassessment: Patient appears in no apparent distress at this time. No changes from ar6 previously documented assessment. Vital Signs: 11:16 BP 153 / 73; Pulse 100; Resp 17; Temp 97.7; Pulse Ox 95% ; Weight 87.09 kg; Height 5 ld1 ft. 5 in. ; 11:44 BP 116 / 74; Pulse 92; Resp 18; Pulse Ox 97% on R/A; Pain 0/10; ar6 13:03 BP 121 / 76; Pulse 89; Resp 18; Pulse Ox 99% on R/A; ld1 13:56 BP 122 / 70; Pulse 84; Resp 18; Pulse Ox 99% on R/A; ar6 11:16 Body Mass Index 31.95 (87.09 kg, 165.1 cm) ld1 11:44 Pain Scale: Adult ar6 ED Course: 11:03 Patient arrived in ED. mg5 11:18 Triage completed. ap3 11:19 Arm band placed on right wrist. ap3 11:25 Nathaniel Ruano MD is Attending Physician. rn 11:43 Marianna Mcgee, DOMINIQUE is Primary Nurse. ar6 11:44 Patient has correct armband on for positive identification. Placed in gown. Bed in low ar6 position. Call light in reach. Side rails up X 1. Provided Education on: plan of care. 12:10 Protime (+inr) Sent. ar6 12:11 Ptt, Activated Sent. ar6 12:11 CBC with Diff Sent. ar6 12:11 CMP Sent. ar6 12:11 Lipase Sent. ar6 12:11 Lactate w/ 2H reflex if indic. Sent. ar6 12:11 Inserted saline lock: 22 gauge in left antecubital area, using aseptic technique. Blood ar6 collected. Flushed with 10 mL NS. 12:37 CT Abd/Pelvis - IV Contrast Only In Process Unspecified. EDMS 13:51 Andrew Winter MD is Referral Physician. rn 13:56 IV discontinued, intact, bleeding controlled, No redness/swelling at site. Pressure ar6 dressing applied. 14:00 No provider procedures requiring assistance completed. ar6 Administered Medications: 12:10 Drug: Pantoprazole IVP 40 mg IVP once Route: IVP; Site: left antecubital; ar6 13:59 Follow up: Response: No adverse reaction ar6 Medication: 13:03 VIS not applicable for this client. ld1 Outcome: 13:50 Discharge ordered by MD. rn 13:56 Discharged to home ambulatory, ar6 13:56 Condition: good 13:56 Discharge instructions given to patient, Instructed on discharge instructions, follow up and referral plans. medication usage, Demonstrated understanding of instructions, follow-up care, medications, Prescriptions given X 1, 14:02 Patient left the ED. ar6 Signatures: Dispatcher [employer] EDMS Nathaniel Ruano MD MD rn Prokisch, Amanda, RN RN ap3 Vicki Murillo RN RN ld1 Arely Sargent mg5 Marianna Mcgee RN RN ar6 Corrections: (The following items were deleted from the chart) 11:37 11:16 BP 153 / ???; Pulse 100bpm; Resp 17bpm; Pulse Ox 95%; Temp 97.7F; 87.09 kg; ld1 Height 5 ft. 5 in.; BMI: 31.9; ap3
[2024-06-09 14:21] VITALS: TEMP 97.7
[2024-06-09 14:31] VITALS: O2SAT 99
[2024-06-09 14:37] VITALS: BP 122/70
== END 2024-06-09 14:02 | disposition home or self-care (01) ==
LOC: ER 11:00
DX: K92.2 Gastrointestinal hemorrhage, unspecified (principal); F17.210 Nicotine dependence, cigarettes, uncomplicated
CPT/HCPCS: 85025; 36415; 85610; 83605; 85730; 83690; 80053; 74177; 96374; 99284; Q9967; J2470

== ENCOUNTER 2024-11-07 13:29 | Emergency (ER) | payer OTHER ==
[2024-11-07] MEDS ORDERED: KETOROLAC 30 MG/ML INJ ONE (14:47)
--- NOTE | 2024-11-07 15:22 | RAD REPORT ---
Procedure: Chest Pa And Lat (2 Views) HISTORY: Cough COMPARISON: 2017 and 2022 FINDINGS: The right hilum is prominent. This probably is dilated pulmonary artery rather than lymphadenopathy. Follow-up PA and lateral chest series 2 months recommended for evaluation. Mild left lung opacities may area of atelectasis. Right lung appears clear of acute infiltrates. The lungs appear clear of acute infiltrate. No significant pleural effusion noted. The heart is mildly to moderately
[2024-11-07] MEDS ORDERED: ONDANSETRON 4 MG (ODT) TAB ONE (16:46)
[2024-11-07] MEDS ORDERED: MORPHINE 4 MG/ML SYR ONE (16:47)
--- NOTE | 2024-11-07 16:57 | RAD REPORT ---
EXAMINATION: Lumbar Spine 3 Views CLINICAL INDICATION: Back pain FINDINGS: No fracture or dislocation seen. The bones are osteoporotic. Mild spondylosis is present
--- NOTE | 2024-11-07 16:59 | RAD REPORT ---
Exam:C Spine Ap/Lat CLINICAL INDICATION: Neck pain Findings: No fracture or dislocation seen. Mild anterior subluxation C2 on C3. No prevertebral soft tissue swelling seen. Mild posterior subluxa tion C5 on C6. Moderate spondylosis distal cervical Osteoporosis
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
[2024-11-07] MEDS ORDERED: AZITHROMYCIN 250 MG TAB ONE (18:01)
[2024-11-07 18:52] VITALS: TEMP 97
[2024-11-07 18:55] VITALS: BP 149/59; O2SAT 90
== END 2024-11-07 18:25 | disposition home or self-care (01) ==
LOC: ER 13:29
DX: J20.9 Acute bronchitis, unspecified (principal); S19.9XXA Unspecified injury of neck, initial encounter; R05.9 Cough, unspecified; J44.9 Chronic obstructive pulmonary disease, unspecified; F17.210 Nicotine dependence, cigarettes, uncomplicated; V43.52XA Car driver injured in collision with other type car in traffic accident, initial encounter; Y93.89 Activity, other specified; Y92.488 Other paved roadways as the place of occurrence of the external cause
CPT/HCPCS: 71046; 72040; 72100; 96372; 99284; Q0162

== ENCOUNTER 2024-12-23 17:06 | Emergency (ER) | payer OTHER ==
--- NOTE | 2024-12-23 18:33 | RAD REPORT ---
EXAM: Chest Single View HISTORY: COPD;Cough;Dyspnea COMPARISON: 11/07/2024 FINDINGS: LUNGS/PLEURA: The lungs are clear. No pleural effusions or pneumothorax. No pulmonary edema. MEDIASTINUM: The mediastinal silhouette is within normal limits. CARDIAC: The cardiac silhouette is within normal limits. UPPER ABDOMEN: No significant abnormality. BONES: No acute abnormality. LINES/TUBES/OTHER: N/A IMPRESSION: No evidence of acute cardiopulmonary disease.
[2024-12-23 19:44] LABS: Absolute Eosinophils 0.2 K/uL (0-0.5); Absolute Lymphocytes (CBC) 1.6 K/uL (0.7-4.9); Absolute Monocytes 1.1 K/uL (0.1-1.3); Absolute Neutrophil 6.8 K/uL (1.8-8.0); Basophils % 0.4 % (0-1.3); Eosinophils % 2.3 % (0-4.4); Hematocrit 46.7 % (36.0-45.0); Hemoglobin 15.3 g/dL (12.0-15.0); Lymphocytes % 16.3 % (15.3-44.8); MCH 31.1 pg (27.0-35.0); MCHC 32.8 g/dL (32.0-36.0); MCV 94.8 fL (80-100); MPV 7.7 fL (7.6-11.3); Monocytes % 10.9 % (3.3-12.3); Neutrophils % 70.1 % (41.7-73.7); Platelets 301 thou/uL (152-406); RBC Red Blood Cell Count 4.93 M/uL (3.86-4.86); Red Cell Distribution Width 14.9 % (12.1-15.2)
[2024-12-23 19:53] LABS: PT Prothrombin Time 11.5 SECONDS (10.0-13.0); PTT, Activated Partial Thromb 30.4 SECONDS (24.3-36.9); Protime INR 1.01
[2024-12-23 20:01] LABS: Albumin 3.4 g/dL (3.4-5.0); Albumin/Globulin Ratio 0.9 (1.1-1.8); Anion Gap 8.5 mEq/L (5.0-15.0); Bilirubin Total 0.3 mg/dL (0.2-1.0); Globulin 3.8 g/dL (2.3-3.5); Potassium 3.5 mEq/L (3.5-5.1); Protein, Total 7.2 g/dL (6.4-8.2)
--- NOTE | 2024-12-23 20:15 | EDPHYS ---
Physician Documentation [facility] Name: Selena Fox Age: 64 yrs Sex: Female : 1960 Arrival Date: 12/23/2024 Time: 17:06 Bed 9 Private MD: ED Physician Nathaniel Ruano HPI: 12/23 17:50 This 64 yrs old Female presents to ER via Ambulatory with complaints of Shortness Of rn Breath. 17:50 The patient has shortness of breath at rest, with light activity. Onset: The rn symptoms/episode began/occurred 2 week(s) ago. The patient's shortness of breath is aggravated by coughing, exertion, light activity. Severity of symptoms: At their worst the symptoms were mild in the emergency department the symptoms are unchanged. The patient has experienced similar episodes in the past. Patient reports shortness of breath and cough for at least 2 weeks to 4 weeks. Reports at the beginning of this got Z-Edenilson and did not completely go away. Reports subjective fever. No hemoptysis. Reports recurrent bronchitis and pneumonia and feels like she has pneumonia.. Historical: - Allergies: 17:21 No Known Allergies; ap3 - PMHx: 17:21 COPD; cystic neoplasms; SVT; Diabetes mellitus; Chronic back pain; ap3 - Immunization history:: Client reports receiving the 2nd dose of the Covid vaccine, Flu vaccine is not up to date. - Infectious Disease History:: Denies. - Social history:: Smoking status: Patient reports the use of cigarette tobacco products, smokes one pack cigarettes per day. - Family history:: not pertinent. - Hospitalizations: : No recent hospitalization is reported. ROS: 17:50 Constitutional: Positive for subjective fever Eyes: Negative for injury, pain, redness, rn and discharge, Cardiovascular: Negative for chest pain, palpitations, and edema, Respiratory: Positive for cough and shortness of breath Abdomen/GI: Negative for abdominal pain, nausea, vomiting, diarrhea, and constipation, MS/Extremity: Negative for injury and deformity, Neuro: Negative for headache, weakness, numbness, tingling, and seizure, Exam: 17:50 Constitutional: This is a well developed, well nourished patient who is awake, alert, rn mild tachypnea ENT: No stridor Cardiovascular: Regular rate and rhythm. No pulse deficits. Respiratory: Mild tachypnea, faint expiratory wheezing. No retractions Abdomen/GI: Soft, non-tender MS/ Extremity: Pulses equal, no cyanosis. Neurovascular intact. Full, normal range of motion. Equal circumference. Neuro: Awake and alert, GCS 15 18:58 ECG was reviewed by the Attending Physician. rn Vital Signs: 17:20 BP 132 / 79; Pulse 94; Resp 19; Temp 98.5(O); Pulse Ox 95% on R/A; Weight 83.91 kg; ap3 Height 5 ft. 5 in. ; Pain 0/10; 20:54 BP 129 / 82; Pulse 89; Resp 19; Temp 98.4; Pulse Ox 96% ; kb3 17:20 Body Mass Index 30.79 (83.91 kg, 165.1 cm) ap3 17:20 Pain Scale: Adult ap3 MDM: 17:26 Medical Screening Exam initiated rn 20:12 Differential diagnosis: Anemia Anxiety Reaction Bronchitis Chronic Obstructive rn Pulmonary Disease pneumonia, Pneumothorax Psychogenic pulmonary edema. Data reviewed: vital signs, nurses notes, lab test result(s), EKG, radiologic studies, plain films, and as a result, I will discharge patient. Care significantly affected by the following chronic conditions: Chronic Obstructive Pulmonary Disease. Counseling: I had a detailed discussion with the patient and/or guardian regarding the historical points, exam findings, and any diagnostic results supporting the discharge/admit diagnosis, lab results, radiology results, the need for outpatient follow up, to return to the emergency department if symptoms worsen or persist or if there are any questions or concerns that arise at home. Response to treatment: the patient's symptoms have mildly improved after treatment, and as a result, I will admit patient. Special discussion: I discussed with the patient/guardian in detail that at this point there is no indication for admission to the hospital. It is understood, however, that if the symptoms persist or worsen the patient needs to return immediately for re-evaluation. ED course: Patient with no acute findings and workup. Chest x-ray negative for pneumothorax or pneumonia per my interpretation. Symptoms for 2 to 4 weeks without signs of pneumonia or elevated WBC. Will discharge home as COPD exacerbation and given return precautions.. 12/23 17:34 Order name: Blood Culture Adult (2) rn 12/23 17:34 Order name: CBC with Diff; Complete Time: 20:12 rn 12/23 17:34 Order name: CMP; Complete Time: 20:12 rn 12/23 17:34 Order name: Lactate w/ 2H reflex if indic.; Complete Time: 20:12 rn 12/23 17:34 Order name: Protime (+inr); Complete Time: 20:12 rn 12/23 17:34 Order name: Ptt, Activated; Complete Time: 20:12 rn 12/23 17:34 Order name: Chest Single View XRAY; Complete Time: 18:34 rn 12/23 17:34 Order name: EKG; Complete Time: 17:34 rn 12/23 17:34 Order name: Accucheck; Complete Time: 20:44 rn 12/23 17:34 Order name: Cardiac monitoring; Complete Time: 20:44 rn 12/23 17:34 Order name: EKG - Nurse/Tech; Complete Time: 20:44 rn 12/23 17:34 Order name: IV Saline Lock - Large Bore; Complete Time: 19:52 rn 12/23 17:34 Order name: Labs collected and sent; Complete Time: 19:52 rn 12/23 17:34 Order name: O2 Per Protocol; Complete Time: 20:44 rn 12/23 17:34 Order name: O2 Sat Monitoring; Complete Time: 20:44 rn 12/23 17:34 Order name: Vital Signs; Complete Time: 20:44 rn EC:58 Rate is 95 beats/min. Rhythm is regular. QRS [place] is Normal. NM interval is normal. QRS rn interval is normal. QT interval is normal. No Q waves. T waves are Normal. No ST changes noted. Clinical impression: NSR w/ Non-specific ST/T Changes. Interpreted by me. Reviewed by me. Administered Medications: 20:43 Drug: Levalbuterol Inhalation 1.25 mg Inhalation once Route: Inhalation; kb3 20:53 Follow up: Response: No adverse reaction; Wheezing diminished kb3 20:43 Drug: Ipratropium Inhalation Aerosol 0.5 mg Inhalation once Route: Inhalation; kb3 20:53 Follow up: Response: No adverse reaction; Wheezing diminished kb3 20:44 Drug: MethylPrednisoLONE IVP 125 mg IVP once Route: IVP; Site: right antecubital; kb3 20:53 Follow up: Response: No adverse reaction kb3 Disposition Summary: 12/23/24 20:14 Discharge Ordered Notes: Location: Home rn Problem: an acute exacerbation rn Symptoms: have improved rn Condition: Stable rn Diagnosis - COPD/ Chronic obstructive pulmonary disease with (acute) exacerbation rn Followup: rn - With: Private Physician - When: As needed - Reason: Recheck today's complaints, Re-evaluation by your physician Discharge Instructions: - Discharge Summary Sheet rn - Chronic Obstructive Pulmonary Disease Exacerbation rn Forms: - Medication Reconciliation Form rn - Antibiotic finance intern - Prescription Opioid Use rn - Patient Portal Instructions rn - Leadership Thank You Letter rn Prescriptions: - Breztri Aerosphere 160-9-4.8 mcg/actuation Inhalation HFA Aerosol Inhaler - inhale 2 inhalation INHALATION route every day in the morning and in the rn evening; 1 unit; Refills: 0, Product Selection Permitted - Prednisone 20 mg Oral Tablet - take 3 tablets ORAL route once daily for 5 days; 15 tablet; Refills: 0, Product rn Selection Permitted - Doxycycline Monohydrate 100 mg Oral Tablet - take 1 tablet ORAL route every 12 hours for 10 days; 20 tablet; Refills: 0, rn Product Selection Permitted Signatures: Dispatcher [employer] EDMS Nathaniel Ruano MD MD rn Prokisch, Amanda RN RN ap3 Lauren Kovacs RN RN kb3 Corrections: (The following items were deleted from the chart) 17:34 17:34 BLOOD CULTURE*+BA.LAB.BRZ ordered. EDMS EDMS 17:34 17:34 CBC+H.LAB.BRZ ordered. EDMS EDMS 17:34 17:34 COMPREHENSIVE METABOLIC PANEL+C.LAB.BRZ ordered. EDMS EDMS 17:34 17:34 LACTATE+C.LAB.BRZ ordered. EDMS EDMS 17:34 17:34 PROTIME (+INR)+COAG.LAB.BRZ ordered. EDMS EDMS 17:34 17:34 PTT, ACTIVATED+COAG.LAB.BRZ ordered. EDMS EDMS
--- NOTE | 2024-12-23 20:15 | ER ---
Nurse's Notes [facility] Name: Selena Fox Age: 64 yrs Sex: Female : 1960 Arrival Date: 12/23/2024 Time: 17:06 Bed 9 Private MD: Diagnosis: COPD/ Chronic obstructive pulmonary disease with (acute) exacerbation Presentation: 12/23 17:20 Chief complaint: Patient states: she has been feeling short of breath with a cough and ap3 runny nose for approx one month. patient states it got worse last night. Coronavirus screen: Client presents with at least one sign or symptom that may indicate coronavirus-19. Ebola Screen: No symptoms or risks identified at this time. Initial Sepsis Screen: Does the patient meet any 2 criteria? HR > 90 bpm. Does the patient have a suspected source of infection? No. Patient's initial sepsis screen is negative. Risk Assessment: Do you want to hurt yourself or someone else? Patient reports no desire to harm self or others. Onset of symptoms is unknown. 17:20 Method Of Arrival: Ambulatory ap3 17:20 Acuity: TRISTA 3 ap3 Triage Assessment: 17:22 General: Appears in no apparent distress. Behavior is calm, cooperative, appropriate ap3 for age, Reports chills for fever for feeling ill for. Pain: Denies pain. Neuro: Level of Consciousness is awake, alert, obeys commands, Oriented to person, place, time, situation. Cardiovascular: Patient's skin is warm and dry. Respiratory: Reports shortness of breath cough that is Airway is patent Respiratory effort is even, unlabored, Onset: The symptoms/episode began/occurred gradually. 20:54 Respiratory: the patient has mild shortness of breath. kb3 Historical: - Allergies: 17:21 No Known Allergies; ap3 - PMHx: 17:21 COPD; cystic neoplasms; SVT; Diabetes mellitus; Chronic back pain; ap3 - Immunization history:: Client reports receiving the 2nd dose of the Covid vaccine, Flu vaccine is not up to date. - Infectious Disease History:: Denies. - Social history:: Smoking status: Patient reports the use of cigarette tobacco products, smokes one pack cigarettes per day. - Family history:: not pertinent. - Hospitalizations: : No recent hospitalization is reported. Screenin:[address] [facility] ED Fall Risk Assessment (Adult) History of falling in the last 3 months, ap3 including since admission Yes- single mechanical fall (1 pt) Confusion or Disorientation No (0 pts) Intoxicated or Sedated No (0 pts) Impaired Gait No (0 pts) Mobility Assist Device Used No (0 pt) Altered Elimination No (0 pt) Score/Fall Risk Level 0 - 2 = Low Risk Oriented to surroundings, Maintained a safe environment, Educated pt \T\ family on fall prevention, incl call for assistance when getting out of bed, Assessed \T\ reinforced patient's understanding of fall precautions, Hourly rounding (assess needs \T\ fall precautionary measures) done, Used ambulatory aids as needed (educated on \T\ assisted with). Abuse screen: Denies threats or abuse. Nutritional screening: No deficits noted. Tuberculosis screening: No symptoms or risk factors identified. Assessment: 20:45 General: Appears comfortable, ill, well groomed, well developed, Behavior is calm, kb3 cooperative, appropriate for age, Reports she has been feeling short of breath with a cough and runny nose for approx one month. patient states it got worse last night. Pain: Denies pain. Neuro: Level of Consciousness is awake, alert, obeys commands, Oriented to person, place, time, situation, Appropriate for age. Cardiovascular: Reports shortness of breath, Capillary refill Rhythm is regular. Respiratory: Airway is patent Trachea midline Respiratory effort is even, unlabored, Respiratory pattern is regular, symmetrical, Breath sounds with wheezes bilaterally. GI: No signs and/or symptoms were reported involving the gastrointestinal system. : No signs and/or symptoms were reported regarding the genitourinary system. EENT: No signs and/or symptoms were reported regarding the EENT system. Derm: Skin is intact, is healthy with good turgor, Skin is pink, warm \T\ dry. Musculoskeletal: No signs and/or symptoms reported regarding the musculoskeletal system. Vital Signs: 17:20 BP 132 / 79; Pulse 94; Resp 19; Temp 98.5(O); Pulse Ox 95% on R/A; Weight 83.91 kg; ap3 Height 5 ft. 5 in. ; Pain 0/10; 20:54 BP 129 / 82; Pulse 89; Resp 19; Temp 98.4; Pulse Ox 96% ; kb3 17:20 Body Mass Index 30.79 (83.91 kg, 165.1 cm) ap3 17:20 Pain Scale: Adult ap3 ED Course: 17:09 Patient arrived in ED. im 17:21 Triage completed. ap3 17:23 Arm band placed on right wrist. ap3 17:26 Nathaniel Ruano MD is Attending Physician. rn 17:32 EKG done, by ED staff, reviewed by Nathaniel Ruano MD. ap3 18:22 Chest Single View XRAY In Process Unspecified. EDMS 19:10 Inserted saline lock: 20 gauge in right antecubital area, using aseptic technique. oh1 Blood collected. Flushed with 10 mL NS. 19:30 First set of blood cultures drawn by me, Second set of blood cultures drawn by me. oh1 19:35 Initial lab(s) drawn, by me, sent to lab. oh1 19:53 Ptt, Activated Sent. oh1 19:53 Protime (+inr) Sent. oh1 19:53 Lactate w/ 2H reflex if indic. Sent. oh1 19:53 CMP Sent. oh1 19:53 CBC with Diff Sent. oh1 19:53 Blood Culture Adult (2) Sent. oh1 20:33 Brook Valdez, RN is Primary Nurse. me1 20:45 Patient has correct armband on for positive identification. Bed in low position. Call kb3 light in reach. Side rails up X 1. Provided Education on: POC. Verbalized understanding.. Client placed on continuous cardiac and pulse oximetry monitoring. NIBP monitoring applied. recessing machine operator on. Pulse ox on. NIBP on. 20:45 No provider procedures requiring assistance completed. kb3 20:54 IV discontinued, intact, bleeding controlled, No redness/swelling at site. Pressure kb3 dressing applied. Administered Medications: 20:43 Drug: Levalbuterol Inhalation 1.25 mg Inhalation once Route: Inhalation; kb3 20:53 Follow up: Response: No adverse reaction; Wheezing diminished kb3 20:43 Drug: Ipratropium Inhalation Aerosol 0.5 mg Inhalation once Route: Inhalation; kb3 20:53 Follow up: Response: No adverse reaction; Wheezing diminished kb3 20:44 Drug: MethylPrednisoLONE IVP 125 mg IVP once Route: IVP; Site: right antecubital; kb3 20:53 Follow up: Response: No adverse reaction kb3 Medication: 20:45 VIS not applicable for this client. kb3 Outcome: 20:14 Discharge ordered by . rn 20:54 Discharged to home ambulatory, kb3 20:54 Condition: stable 20:54 Discharge instructions given to patient, Instructed on discharge instructions, follow up and referral plans. medication usage, Demonstrated understanding of instructions, follow-up care, medications, Prescriptions given X 3, 20:55 Patient left the ED. kb3 Signatures: Dispatcher [employer] EDMS Nathaniel Ruano MD MD rn Prokisch, Amanda RN RN ap3 Lauren Kovacs RN RN kb3 Jelena Crook Michelle, RN RN me1 Janene Chen oh1 Corrections: (The following items were deleted from the chart) 19:52 19:51 Inserted saline lock: 20 gauge in right antecubital area, using aseptic oh1 technique. Blood collected. Flushed with 10 mL NS oh1 19:52 19:51 Initial lab(s) drawn, by me, sent to lab. oh1 oh1 20:45 17:20 Chief complaint: Patient states: she has been feeling short of breath with a kb3 cough and runny nose for approx one month. patient states it got worse last night. ap3
[2024-12-23] MEDS ORDERED: IPRATROPIUM BROM 0.5MG/2.5ML ONE (20:35)
[2024-12-23] MEDS ORDERED: LEVALBUTEROL 1.25 MG/3 ML NEB ONE (20:35)
[2024-12-23] MEDS ORDERED: METHYLPREDNISOLONE 125 MG INJ ONE (20:35)
[2024-12-24 09:11] VITALS: BP 129/82; TEMP 98.4; O2SAT 96
--- NOTE | 2024-12-26 12:06 | EKG ---
Test Date: 2024-12-23 Test Time: 17:31:53 Event Specialist: ALP MEASUREMENT RESULTS: Intervals: Rate: 95 [place]: 136 QRSD: 88 QT: 386 QTc: 485 [place]: P: 84 [place]: 136 QRS: 86 T: 73 INTERPRETIVE STATEMENTS: Normal sinus rhythm Possible Anterior infarct, age undetermined Abnormal ECG Compared to ECG 04/26/2018 11:27:29 Myocardial infarct finding now present Electronically Signed On 12-26-24 12:04:35 DIRECTOR OF MARKETING by Hernesto Etienne
== END 2024-12-23 20:55 | disposition home or self-care (01) ==
LOC: ER 17:06
DX: J44.1 Chronic obstructive pulmonary disease with (acute) exacerbation (principal); F17.210 Nicotine dependence, cigarettes, uncomplicated
CPT/HCPCS: 93005; 87040 ×2; 85025; 36415; 85610; 83605; 85730; 80053; 71045; 96374; 99285; J7614; J7644; J2919

== ENCOUNTER 2025-02-26 16:10 | Emergency (ER) | payer OTHER ==
[2025-02-26] MEDS ORDERED: dexAMETHasone 10 MG/ML VIAL ONE (17:54)
[2025-02-26] MEDS ORDERED: HYDROMORPHONE HCL 1 MG/ML INJ ONE ×2 (17:54→19:47)
[2025-02-26] MEDS ORDERED: ONDANSETRON 4 MG/2 ML VIAL ONE (17:54)
[2025-02-26] MEDS ORDERED: KETOROLAC 30 MG/ML INJ ONE (17:54)
[2025-02-26] MEDS ORDERED: DIAZEPAM 5 MG TABLET ONE (17:55)
[2025-02-26] MEDS ORDERED: NA CHLORIDE 0.9% 1,000 ML ONE (17:55)
--- NOTE | 2025-02-26 18:17 | RAD REPORT ---
EXAMINATION: CT LUMBAR SPINE WITHOUT CONTRAST CLINICAL INDICATION: Female, 64 years old. PAIN TECHNIQUE: Axial CT images were obtained through the lumbar spine in soft tissue and bone windows wit hout intravenous contrast. Coronal and Sagittal reformatted images were created from the data set. One or more of the following dose reduction techniques were used: Automated exposure control, adjustm ent of the mA and/ or kV according to patient size, and/or iterative reconstruction. Unless otherwise specified, incidental findings do not require dedicated imaging follow-up. COMPARISON: No prior exam. FINDINGS: For purposes of this dictation, it is assumed that there are 5 non rib-bearing lumbar type vertebrae, and the most caudal fully segmented lumbar vertebra is labeled L5. ALIGNMENT: The lumbar spine demonstrates normal alignment without scoliosis or spondylolisthesis. BONES: Diffuse osteopenia. Mild central depression T12 is a chronic appearance. No evidence of acute compression fracture. DISCS: Significant disc thinning is present particularly notable at L4-5 and L5-S1. Small endplate os teophyte. LEVELS: Moderate central canal stenosis is seen at L3-4 and L4-5. SOFT TISSUE: Partially visualized cystic posterior right renal lesion seen. IMPRESSION: No acute lumbar spine abnormalities. Moderate lower lumbar spondylosis is present.
--- NOTE | 2025-02-26 19:01 | RAD REPORT ---
EXAMINATION: XR PELVIS CLINICAL INDICATION: PAIN TECHNIQUE: AP Pelvis examination was obtained. COMPARISON: 01/21/2014 FINDINGS: Diffuse osteopenia. Mild arthritic changes affect both hips. No acute fracture, dislocation or AVN.
--- NOTE | 2025-02-26 19:02 | RAD REPORT ---
EXAMINATION: XR RIGHT HIP CLINICAL INDICATION: . PAIN RIGHT TECHNIQUE: Multiple views of the right hip were obtained. COMPARISON: No prior exam. FINDINGS: Mild osteoarthritis of the right hip. No fracture, dislocation or AVN.
--- NOTE | 2025-02-26 19:28 | EDPHYS ---
Physician Documentation [facility] Name: Selena Fox Age: 64 yrs Sex: Female : 1960 Arrival Date: 02/26/2025 Time: 16:10 Bed 11 Private MD: ED Physician Javon Butler HPI: 02/26 19:19 This 64 yrs old Female presents to ER via EMS with complaints of Leg Pain. jaylin 19:19 This 64 yrs old Female presents to ER via EMS with complaints of Leg Pain. jaylin 19:19 The patient presents with decreased range of motion, pain. The complaints affect the jaylin coccyx, right lower back and right gluteus merna. Context: resulted from an unknown cause, the patient can partially bear weight. Onset: The symptoms/episode began/occurred yesterday. Modifying factors: The symptoms are alleviated by nothing. remaining still, the symptoms are aggravated by movement, weight bearing. Associated signs and symptoms: The patient has no apparent associated signs or symptoms. Severity of symptoms: At their worst the symptoms were moderate, in the emergency department the symptoms are unchanged. The patient has experienced similar episodes in the past, several times. Historical: - Allergies: 17:16 No Known Allergies; ss - PMHx: 17:16 chronic back pain; COPD; cystic neoplasms; diabetes mellitus; SVT; ss - Immunization history:: Adult Immunizations up to date. - Infectious Disease History:: Denies. - Social history:: Smoking status: Patient reports the use of cigarette tobacco products, smokes one pack cigarettes per day. - Family history:: not pertinent. ROS: 19:19 Constitutional: Negative for fever, chills, and weight loss, Eyes: Negative for injury, jaylin pain, redness, and discharge, ENT: Negative for injury, pain, and discharge, Neck: Negative for injury, pain, and swelling, Cardiovascular: Negative for chest pain, palpitations, and edema, Respiratory: Negative for shortness of breath, cough, wheezing, and pleuritic chest pain, Abdomen/GI: Negative for abdominal pain, nausea, vomiting, diarrhea, and constipation, : Negative for injury, bleeding, discharge, and swelling, Skin: Negative for injury, rash, and discoloration, Neuro: Negative for headache, weakness, numbness, tingling, and seizure, Psych: Negative for depression, anxiety, suicide ideation, homicidal ideation, and hallucinations, Allergy/Immunology: Negative for hives, rash, and allergies, Endocrine: Negative for neck swelling, polydipsia, polyuria, polyphagia, and marked weight changes, 19:19 Back: Positive for decreased range of motion, pain at rest, of the lumbar area and right low back, Exam: 19:19 Constitutional: This is a well developed, well nourished patient who is awake, alert, jaylin and in no acute distress. Head/Face: Normocephalic, atraumatic. Eyes: Pupils equal round and reactive to light, extra-ocular motions intact. Lids and lashes normal. Conjunctiva and sclera are non-icteric and not injected. Cornea within normal limits. Periorbital areas with no swelling, redness, or edema. ENT: Nares patent. No nasal discharge, no septal abnormalities noted. Tympanic membranes are normal and external auditory canals are clear. Oropharynx with no redness, swelling, or masses, exudates, or evidence of obstruction, uvula midline. Mucous membranes moist. Neck: Trachea midline, no thyromegaly or masses palpated, and no cervical lymphadenopathy. Supple, full range of motion without nuchal rigidity, or vertebral point tenderness. No Meningismus. Chest/axilla: Normal chest wall appearance and motion. Nontender with no deformity. No lesions are appreciated. Cardiovascular: Regular rate and rhythm with a normal S1 and S2. No gallops, murmurs, or rubs. Normal PMI, no JVD. No pulse deficits. Respiratory: Lungs have equal breath sounds bilaterally, clear to auscultation and percussion. No rales, rhonchi or wheezes noted. No increased work of breathing, no retractions or nasal flaring. Abdomen/GI: Soft, non-tender, with normal bowel sounds. No distension or tympany. No guarding or rebound. No evidence of tenderness throughout. Skin: Warm, dry with normal turgor. Normal color with no rashes, no lesions, and no evidence of cellulitis. Neuro: Awake and alert, GCS 15, oriented to person, place, time, and situation. Cranial nerves II-XII grossly intact. Motor strength 5/5 in all extremities. Sensory grossly intact. Cerebellar exam normal. Normal gait. Psych: Awake, alert, with orientation to person, place and time. Behavior, mood, and affect are within normal limits. 19:19 Back: ROM is normal, normal spinal alignment noted, CVA tenderness, is absent, muscle spasm, is appreciated in the left low back, left mid back, right mid back and right low back, 19:19 Musculoskeletal/extremity: ROM: full active range of motion, full passive range of motion, in the right hip, Circulation is intact in all extremities. Sensation intact. Compartment Syndrome exam of affected extremity: is normal. DVT Exam: no swelling, negative Homans' sign noted on exam, no appreciated bluish discoloration, no erythema, no increased warmth, pain, tenderness, that is moderate, of the right leg, of the right hip, Vital Signs: 17:13 BP 126 / 63; Pulse 83; Resp 17; Temp 98.4(TE); Pulse Ox 93% on R/A; Weight 85.73 kg; ss Height 5 ft. 5 in. ; Pain 10/10; 19:03 BP 140 / 68; Pulse 80; Resp 16; Pulse Ox 92% on R/A; Pain 9/10; ss 17:13 Body Mass Index 31.45 (85.73 kg, 165.1 cm) ss 17:13 Pain Scale: Adult ss 19:03 Pain Scale: Adult ss Myles Coma Score: 19:19 Eye Response: spontaneous(4). Motor Response: obeys commands(6). Verbal Response: jaylin oriented(5). Total: 15. MDM: 17:10 Medical Screening Exam initiated jaylin 19:23 Differential diagnosis: dislocation, closed fracture, contusion, tendonitis. Data jaylin reviewed: vital signs, nurses notes, EMS record, lab test result(s), radiologic studies. Consideration of Admission/Observation Escalation of care including admission/observation considered. I considered the following discharge prescriptions or medication management in the emergency department Medications were administered in the Emergency Department. See MAR. Independent interpretation of the following test(s) in the Emergency Department CT Scan: My interpretation is ct lumbar. Test considered but Not performed: MRI: no mri lumbar, no mri hip. Historians other than the Patient: Spouse/Significant Other: well informed. Care significantly affected by the following chronic conditions: Chronic Obstructive Pulmonary Disease, Cancer, cbp, copd, svt. Counseling: I had a detailed discussion with the patient and/or guardian regarding the historical points, exam findings, and any diagnostic results supporting the discharge/admit diagnosis, lab results, radiology results, the need for outpatient follow up, for definitive care, a family practitioner, a orthopedic surgeon. 02/26 17:35 Order name: CBC with Diff; Complete Time: 19:47 [facility] 02/26 17:35 Order name: Comprehensive Metabolic Panel [facility] 02/26 17:35 Order name: Urinalysis w/ reflexes; Complete Time: 19:47 [facility] 02/26 17:35 Order name: CT Lumbar Spine Wo Con; Complete Time: 19:05 [facility] 02/26 17:35 Order name: Hip Right 2 View XRAY; Complete Time: 19:05 [facility] 02/26 17:35 Order name: Pelvis XRAY; Complete Time: 19:05 [facility] Administered Medications: 18:20 Drug: NS 0.9% IV 1000 ml IV at 1 bolus Per protocol; to be given as a bolus over 60 ss minutes Route: IV; Rate: 1 bolus; Site: right antecubital; 20:00 Follow up: Response: No adverse reaction; IV Status: Completed infusion ha1 18:30 Drug: Ondansetron IVP 8 mg IVP once; over 2 minutes Route: IVP; Site: right antecubital;ss 19:05 Follow up: Response: No adverse reaction ss 18:32 Drug: Decadron - Dexamethasone IVP 10 mg IVP once Route: IVP; Site: right antecubital; ss 19:04 Follow up: Response: No adverse reaction ss 18:32 Drug: HYDROmorphone IVP 1 mg IVP once Route: IVP; Site: right antecubital; ss 19:04 Follow up: Response: No adverse reaction; RASS: Alert and Calm (0) ss 18:36 Drug: Ketorolac IVP 30 mg IVP once Route: IVP; Site: right antecubital; ss 19:05 Follow up: Response: No adverse reaction; RASS: Alert and Calm (0) ss 18:41 Drug: Diazepam PO 10 mg PO once Route: PO; ss 19:05 Follow up: Response: No adverse reaction; Pain is decreased ss 20:00 Not Given (Physician Discretion): hydromorphone1 mg IVP once ha1 Disposition Summary: 02/26/25 19:27 Discharge Ordered Notes: Location: Home jaylin Problem: new jaylin Symptoms: have improved jaylin Condition: Stable jaylin Diagnosis - Spondylolysis, lumbar region jaylin - Other specified arthritis - right and left hips jaylin - Sciatica, right side jaylin - Other intervertebral disc degeneration, lumbar region jaylin - Other chronic pain jaylin Followup: jaylin - With: Private Physician - When: 2 - 3 days - Reason: Recheck today's complaints, Continuance of care, Re-evaluation by your physician Discharge Instructions: - Discharge Summary Sheet jaylin - Chronic Back Pain jaylin - Chronic Pain, Adult jaylin - Sciatica jaylin - Sciatica, [id number] jaylin - Radicular Pain jaylin - Spondylolysis jaylin Forms: - Medication Reconciliation Form jaylin - Antibiotic Education jaylin - Prescription Opioid Use jaylin - Patient Portal Instructions [facility] - Leadership Thank You Letter [facility] Prescriptions: - Diclofenac Sodium 75 mg Oral tablet, delayed release (enteric coated) - take 1 tablet ORAL route 2 times per day; 14 tablet; Refills: 0, Product jaylin Selection Permitted - methocarbamol 750 mg Oral tablet - take 1 tablet ORAL route every 4-6 hours; 30 tablet; Refills: 0, Product jaylin Selection Permitted - Dexamethasone 4mg Oral tablet - take 1 tablet ORAL route daily for 4 days; 4 tablet; Refills: 0, Product jaylin Selection Permitted Signatures: Dispatcher [employer] EDJavon Griffiths MD MD [facility] Regina Harris, RN RN Calli Hopper RN ha1 Corrections: (The following items were deleted from the chart) 17:35 17:35 CBC+H.LAB.BRZ ordered. EDMS EDMS 17:35 17:35 COMPREHENSIVE METABOLIC PANEL+C.LAB.BRZ ordered. EDMS EDMS 17:35 17:35 Urinalysis+U.LAB.BRZ ordered. EDMS EDMS 17:36 17:35 Spine Lumbar Wo Con+CT.RAD.BRZ ordered. EDMS EDMS
--- NOTE | 2025-02-26 19:28 | ER ---
Nurse's Notes [facility] [place], [place] Name: Selena Fox Age: 64 yrs Sex: Female : 1960 Arrival Date: 02/26/2025 Time: 16:10 Bed 11 Private MD: Diagnosis: Spondylolysis, lumbar region;Other specified arthritis-right and left hips;Sciatica, right side;Other intervertebral disc degeneration, lumbar region;Other chronic pain Presentation: 02/26 17:13 Chief complaint: Patient states: R hip pain since Thursday. No known injury. Coronavirus ss screen: Client denies travel out of the [place] in the last 14 days. Ebola Screen: Patient denies exposure to infectious person. Patient denies travel to an Ebola-affected area in the 21 days before illness onset. Initial Sepsis Screen: Does the patient meet any 2 criteria? No. Patient's initial sepsis screen is negative. Does the patient have a suspected source of infection? No. Patient's initial sepsis screen is negative. Risk Assessment: Do you want to hurt yourself or someone else? Patient reports no desire to harm self or others. Onset of symptoms was February 21, 2025. 17:13 Method Of Arrival: EMS: [facility] ss 17:13 Acuity: [facility] 3 ss 17:16 Care prior to arrival: Medication(s) given: Fentanyl 100 mcg IVP. Pt reports NO relief ss IV initiated. 20 GA, in the right antecubital area. Historical: - Allergies: 17:16 No Known Allergies; ss - PMHx: 17:16 chronic back pain; COPD; cystic neoplasms; diabetes mellitus; SVT; ss - Immunization history:: Adult Immunizations up to date. - Infectious Disease History:: Denies. - Social history:: Smoking status: Patient reports the use of cigarette tobacco products, smokes one pack cigarettes per day. - Family history:: not pertinent. Screenin:06 Abuse screen: Denies threats or abuse. Denies injuries from another. Nutritional ss screening: No deficits noted. Tuberculosis screening: Never had TB. Assessment: 17:10 Reassessment: Pt states, "I need some fucking medicine that is going to take my pain ss away! That Fentanyl didn't do shit for me! I don't understand how people overdose on it all the time. Tell that doctor to give me something for pain and quick!.". 17:58 Reassessment: Pt to CT now VIA stretcher. ss 18:42 Reassessment: RASS SCORE 0. Pt states, "If I can't get an MRI today, then what am I ss doing here? I'm not leaving unless I can walk out of here.". 19:06 Reassessment: Patient appears in no apparent distress at this time. Pt states, "this ss pain is not gone yet." Pt educated that medication may not make her pain go away completely, but should improve. 20:00 Reassessment: Patient and/or family updated on plan of care and expected duration. Pain ha1 level reassessed. Patient is alert, oriented x 3, equal unlabored respirations, skin warm/dry/pink. Vital Signs: 17:13 BP 126 / 63; Pulse 83; Resp 17; Temp 98.4(TE); Pulse Ox 93% on R/A; Weight 85.73 kg; ss Height 5 ft. 5 in. ; Pain 10/10; 19:03 BP 140 / 68; Pulse 80; Resp 16; Pulse Ox 92% on R/A; Pain 9/10; ss 17:13 Body Mass Index 31.45 (85.73 kg, 165.1 cm) ss 17:13 Pain Scale: Adult ss 19:03 Pain Scale: Adult ss Myles Coma Score: 19:19 Eye Response: spontaneous(4). Motor Response: obeys commands(6). Verbal Response: jaylin oriented(5). Total: 15. ED Course: 17:05 Patient arrived in ED. ss 17:08 Shankar Winston [facility]-C [facility]. [facility] 17:08 Javon Butler MD is Attending Physician. dr5 17:16 Triage completed. ss 17:16 Arm band placed on left wrist. ss 17:58 Regina Harris, DOMINIQUE is Primary Nurse. ss 18:05 CT Lumbar Spine Wo Con In Process Unspecified. EDMS 18:30 Maintain EMS IV. Dressing intact. Good blood return noted. Site clean \\T\\ dry. Gauge \\T\\ ss site: 20 gauge in R AC. 18:54 Hip Right 2 View XRAY In Process Unspecified. EDMS 18:54 Pelvis XRAY In Process Unspecified. EDMS 19:06 Patient has correct armband on for positive identification. ss 20:09 No provider procedures requiring assistance completed. IV discontinued, intact, ha1 bleeding controlled, No redness/swelling at site. Pressure dressing applied. Administered Medications: 18:20 Drug: NS 0.9% IV 1000 ml IV at 1 bolus Per protocol; to be given as a bolus over 60 ss minutes Route: IV; Rate: 1 bolus; Site: right antecubital; 20:00 Follow up: Response: No adverse reaction; IV Status: Completed infusion ha1 18:30 Drug: Ondansetron IVP 8 mg IVP once; over 2 minutes Route: IVP; Site: right antecubital;ss 19:05 Follow up: Response: No adverse reaction ss 18:32 Drug: Decadron - Dexamethasone IVP 10 mg IVP once Route: IVP; Site: right antecubital; ss 19:04 Follow up: Response: No adverse reaction ss 18:32 Drug: HYDROmorphone IVP 1 mg IVP once Route: IVP; Site: right antecubital; ss 19:04 Follow up: Response: No adverse reaction; RASS: Alert and Calm (0) ss 18:36 Drug: Ketorolac IVP 30 mg IVP once Route: IVP; Site: right antecubital; ss 19:05 Follow up: Response: No adverse reaction; RASS: Alert and Calm (0) ss 18:41 Drug: Diazepam PO 10 mg PO once Route: PO; ss 19:05 Follow up: Response: No adverse reaction; Pain is decreased ss 20:00 Not Given (Physician Discretion): hydromorphone1 mg IVP once ha1 Medication: 17:10 VIS not applicable for this client. ss Outcome: 19:27 Discharge ordered by . jaylin 20:08 Discharged to home via wheelchair, with family, ha1 20:08 Condition: stable 20:08 Instructed on discharge instructions, follow up and referral plans. Demonstrated understanding of instructions, follow-up care, medications, Prescriptions given X 3, 20:10 Patient left the ED. ha1 Signatures: Dispatcher [employer] EDMS Javon Butler MD MD cha Blanchard, Shelby, RN RN Calli Hopper RN RN ha1 Shankar Winston, LEAD WEB DEVELOPER-C LEAD WEB DEVELOPER-Cdr5 Corrections: (The following items were deleted from the chart) 19:04 17:13 BP 126 / 63; Pulse 83bpm; Resp 17bpm; Pulse Ox 93% RA; Temp 98.4F Temporal; 85.73 ss kg; Height 5 ft. 5 in.; BMI: 31.4; ss
[2025-02-26 19:33] LABS: Absolute Eosinophils 0.2 K/uL (0-0.5); Absolute Lymphocytes (CBC) 1.9 K/uL (0.7-4.9); Absolute Monocytes 0.7 K/uL (0.1-1.3); Absolute Neutrophil 7.3 K/uL (1.8-8.0); Basophils % 0.5 % (0-1.3); Eosinophils % 2.2 % (0-4.4); Hematocrit 45.1 % (36.0-45.0); Hemoglobin 15.1 g/dL (12.0-15.0); Lymphocytes % 18.5 % (15.3-44.8); MCH 30.9 pg (27.0-35.0); MCHC 33.5 g/dL (32.0-36.0); MCV 92.3 fL (80-100); MPV 7.6 fL (7.6-11.3); Monocytes % 6.7 % (3.3-12.3); Neutrophils % 72.1 % (41.7-73.7); Nucleated Red Blood Cells % 0.1 % (0-0); Platelets 313 thou/uL (152-406); RBC Red Blood Cell Count 4.88 M/uL (3.86-4.86); Red Cell Distribution Width 14.1 % (12.1-15.2)
[2025-02-26 19:41] LABS: Specific Gravity 1.026 (1.005-1.030); Sqamous Epithelial <5 /HPF (None Seen); Urine Bacteria None Seen /HPF (<20); Urine Bilirubin NEGATIVE (Negative); Urine Blood 1+ (Negative); Urine Clarity Clear (Clear); Urine Color Light-Yellow (Yellow); Urine Culture Reflex Order NOT NEEDED; Urine Glucose NEGATIVE (Negative); Urine Ketones NEGATIVE (Negative); Urine Microscopic Reflex YN ORDER UMIC; Urine Nitrite NEGATIVE (Negative); Urine Protein NEGATIVE (Negative); Urine Urobilinogen Normal (Normal); Urine WBC <5 /HPF (<5); Urine pH 5.5 (5.0-7.0)
[2025-02-26 19:50] LABS: Albumin 3.1 g/dL (3.4-5.0); Albumin/Globulin Ratio 0.9 (1.1-1.8); Anion Gap 6.5 mEq/L (5.0-15.0); Bilirubin Total 0.4 mg/dL (0.2-1.0); Globulin 3.5 g/dL (2.3-3.5); Potassium 3.5 mEq/L (3.5-5.1); Protein, Total 6.6 g/dL (6.4-8.2)
[2025-02-28 08:42] VITALS: TEMP 98.4
[2025-02-28 08:44] VITALS: BP 140/68; O2SAT 92
== END 2025-02-26 20:10 | disposition home or self-care (01) ==
LOC: ER 16:10
DX: M43.06 Spondylolysis, lumbar region (principal); M13.852 Other specified arthritis, left hip; M13.851 Other specified arthritis, right hip; M54.31 Sciatica, right side; M51.369 Other intervertebral disc degeneration, lumbar region without mention of lumbar back pain or lower extremity pain; G89.29 Other chronic pain; F17.210 Nicotine dependence, cigarettes, uncomplicated
CPT/HCPCS: 96361; 85025; 81001; 36415; 80053; 72131; 72170; 73502; 96375; 96374; 99284; J1100; J1171 ×2; J2405; J7030